=== PATIENT | male | born 1960 | race American Indian/Alaskan Native ===

== ENCOUNTER 2017-11-08 17:30 | Inpatient (IN) | payer BC ==
[2017-11-08 19:10] LABS: BASO # 0.01 K/mm3 (0.0-2.0); BASO % 0.2 % (0.0-3.0); EOS % 0.6 % (1.5-5.0); GRAN # 4.07 (1.4-6.5); HEMOGLOBIN 14.1 g/dL (14.0-18.0); LYMPH # 1.7 (1.2-3.4); LYMPH % 27.9 % (22.0-35.0); MEAN CELL VOLUME 95.6 fl (80.0-105.0); MEAN CORPUSCULAR HEMOGLOBIN 32.9 pg (25.0-35.0); MEAN CORPUSCULAR HGB CONC 34.4 g/dl (31.0-37.0); MONO # 0.3 (0.1-0.6); MONO % 5.3 % (1.0-6.0); RBC 4.29 10^6/uL (3.5-6.1); RED CELL DISTRIBUTION WIDTH 12.6 % (11.5-14.5); WHITE BLOOD COUNT 6.2 10^3/ul (4.5-11.0)
[2017-11-08 19:14] LABS: ALB/GLOB RATIO 1.2 (1.1-1.8); ALBUMIN 4.3 g/dL (3.0-4.8); ALT/SGPT 39 U/L (7-56); AST/SGOT 31 U/L (17-59); BLOOD UREA NITROGEN 24 mg/dL (7-21); CALCIUM 9.7 mg/dL (8.4-10.5); GFR NON-AFRICAN AMERICAN > 60
[2017-11-08] MEDS ORDERED: Ceftaroline 600 MG in Sodium Chloride 0.9% 100 ML IVPB STA (19:31)
--- NOTE | 2017-11-08 19:43 | ED PDOC ---
Arrival/HPI - General Historian: Patient <Etelvina Rees - Last Filed: 11/08/17 20:40> <Luis Multani - Last Filed: 11/13/17 08:18> - General Chief Complaint: Lower Extremity Problem/Injury Time Seen by Provider: 11/08/17 18:03 - History of Present Illness Narrative History of Present Illness (Text): 11/08/17 19:40 57-year-old male resents today sent in by manager clinical applications for admission for osteomyelitis of the right great toe. Patient had outpatient MRI and culture and sensitivities performed. Patient was found to have osteomyelitis of the right big toe. He's been on multiple antibiotics by mouth for infection for the past few weeks. Patient denies chest pain or shortness of breath. He denies fevers or chills. Denies nausea vomiting diarrhea or constipation. Patient is complaining of slight pain to the great toe. Per patient he's had discoloration of the right great toe for over a month. He had a recent removal of the nail after ingrown toenail. No other complaints. (Etelvina Rees) Past Medical History - Provider Review Nursing Documentation Reviewed: Yes - Travel History Have you recently traveled outside [place] w/in the past 3 mons?: No - Infectious Disease Hx of Infectious Diseases: None - Cardiac Hx Cardiac Disorders: No Hx Hypertension: Yes Hx Peripheral Vascular Disease: Yes - Pulmonary Hx Respiratory Disorders: No - Neurological Hx Neurological Disorder: No - HEENT Hx HEENT Disorder: Yes (RETINAL BLEED RIGHT EYE) - Renal Hx Renal Disorder: No - Endocrine/Metabolic Hx Endocrine Disorders: Yes Hx Diabetes Mellitus Type 2: Yes - Hematological/Oncological Hx Blood Disorders: No - Integumentary Hx Dermatological Disorder: Yes (DISCOLORIZATION RIGHT LEG) - Musculoskeletal/Rheumatological Hx Musculoskeletal Disorders: No - Gastrointestinal Hx Gastrointestinal Disorders: Yes - Genitourinary/Gynecological Hx Genitourinary Disorders: No - Psychiatric Hx Psychophysiologic Disorder: No Hx Substance Use: No - Anesthesia Hx Anesthesia: Yes Hx Anesthesia Reactions: No Hx Malignant Hyperthermia: No <Etelvina Rees - Last Filed: 11/08/17 20:40> Family/Social History - Physician Review Nursing Documentation Reviewed: Yes Family/Social History: Unknown Family HX Smoking Status: Never Smoked Hx Alcohol Use: No Hx Substance Use: No <Etelvina Rees - Last Filed: 11/08/17 20:40> Allergies/Home Meds <LucianarohiniEtelvina - Last Filed: 11/08/17 20:40> <Luis Multani - Last Filed: 11/13/17 08:18> Allergies/Adverse Reactions: Allergies No Known Allergies Allergy (Verified 06/08/17 12:25) Home Medications: Home Meds Medication Instructions Recorded Confirmed GlipiZIDE [Glipizide] 10 mg PO DAILY 06/08/17 11/08/17 MetFORMIN [glucOPHAGE] 1,000 mg PO BID 06/08/17 11/08/17 Aspirin [Ecotrin] 81 mg PO DAILY 11/08/17 11/08/17 Clopidogrel [Plavix] 75 mg PO DAILY 11/08/17 11/08/17 Review of Systems - Review of Systems Constitutional: absent: Fatigue, Fevers Respiratory: absent: SOB, Cough Cardiovascular: absent: Chest Pain, Palpitations Gastrointestinal: absent: Abdominal Pain, Nausea, Vomiting Musculoskeletal: Arthralgias. absent: Back Pain, Neck Pain Skin: Cellulitis Psychiatric: absent: Anxiety, Depression <Etelvina Rees - Last Filed: 11/08/17 20:40> Physical Exam Vital Signs Reviewed: Yes Temperature: Afebrile Blood Pressure: Hypertensive Pulse: Regular Respiratory Rate: Normal Appearance: Positive for: Well-Appearing, Non-Toxic, Comfortable Pain Distress: None Mental Status: Positive for: Alert and Oriented X 3 - Systems Exam Head: Present: Atraumatic Mouth: Present: Moist Mucous Membranes Neck: Present: Normal Range of Motion Respiratory/Chest: Present: Clear to Auscultation, Good Air Exchange. No: Respiratory Distress, Accessory Muscle Use Cardiovascular: Present: Regular Rate and Rhythm, Normal S1, S2. No: Murmurs Lower Extremity: Present: NORMAL PULSES (pulses present via doppler), Tenderness (right great toe; there is swelling and slight erythema, with blueish discoloration to the great toe. there is no nail along medial aspect of great toe; sensation in tact cap refill <2. ), Swelling, Neurovascularly Intact. No: CALF TENDERNESS Neurological: Present: GCS=15 Skin: Present: Warm, Dry, Normal Color Psychiatric: Present: Alert, Oriented x 3 <Etelvina Rees - Last Filed: 11/08/17 20:40> Vital Signs Temp Pulse Resp BP Pulse Ox 11/08/17 23:15 18 99 11/08/17 21:00 73 18 129/80 98 11/08/17 17:59 98.5 F 80 18 163/89 H 99 Medical Decision Making <Etelvina Rees - Last Filed: 11/08/17 20:40> <Luis Multani - Last Filed: 11/13/17 08:18> ED Course and Treatment: 11/08/17 19:42 57-year-old diabetic male with acute osteomyelitis of the right great toe Patient had outpatient MRI that confirmed osteomyelitis Patient was sent in by Dr. Roman for IV antibiotics. Advised starting Teflaro 600 mg IV. CBC within normal limits CMP BUN 24 creatinine 1.0 Blood cultures pending Case was discussed in depth with Dr. Sawyer acceptdawson admission to [facility] for osteomyelitis all aspects of this case were discussed the attending of record. Impression; osteomyelitis admit to med/surg (Etelvina Rees) - Lab Interpretations Microbiology Results: Microbiology Results 11/08/17 19:00 Blood Blood Culture - Preliminary NO GROWTH AFTER 4 DAYS 11/08/17 18:50 Blood Blood Culture - Preliminary NO GROWTH AFTER 4 DAYS Lab Results: 11/08/17 18:50 11/08/17 18:50 Lab Results 11/08/17 18:50: Procalcitonin 0.05 L 11/08/17 18:50: C-Reactive Protein < 5.00 11/08/17 18:50: WBC 6.2, RBC 4.29, Hgb 14.1, Hct 41.0 L, MCV 95.6, MCH 32.9, MCHC 34.4, RDW 12.6, Plt Count 201, MPV 9.0, Gran % 66.0, Lymph % (Auto) 27.9, [place] % (Auto) 5.3, Eos % (Auto) 0.6 L, Baso % (Auto) 0.2, Gran # 4.07, Lymph # ( Auto) 1.7, [place] # (Auto) 0.3, Eos # (Auto) 0.0, Baso # (Auto) 0.01 11/08/17 18:50: Sodium 139, Potassium 4.1, Chloride 103, Carbon Dioxide 28, Anion Gap 13, BUN 24 H, Creatinine 1.0, Est GFR ( Amer) > 60, Est GFR ( Non-Af Amer) > 60, Random Glucose 108, Calcium 9.7, Total Bilirubin 0.4, AST 31 , ALT 39, Alkaline Phosphatase 124, Total Protein 7.7, Albumin 4.3, Globulin 3.5 , Albumin/Globulin Ratio 1.2 - RAD Interpretation Radiology Orders: 11/08/17 18:04 CHEST PORTABLE [RAD] Stat - Medication Orders Current Medication Orders: Amlodipine Besylate (Norvasc) 5 mg PO DAILY [facility] Last Admin: 11/12/17 09:26 Dose: 5 mg MAR Blood Pressure Document 11/12/17 09:26 [facility] (Rec: 11/12/17 09:27 [id number] Blood Pressure Blood Pressure (100/60-150/90) 126/78 Aspirin (Ecotrin) 81 mg PO DAILY [facility] Last Admin: 11/12/17 09:26 Dose: 81 mg Clopidogrel Bisulfate (Plavix) 75 mg PO DAILY [facility] Last Admin: 11/12/17 09:27 Dose: 75 mg Dextrose (Dextrose 50% Inj) 0 ml IV STAT PRN; Protocol PRN Reason: Hypoglycemia Protocol Enoxaparin Sodium (Lovenox) 40 mg SC DAILY [facility] PRN Reason: Protocol Last Admin: 11/09/17 09:48 Dose: 40 mg Subcutaneous Administrations Document 11/09/17 09:48 EP (Rec: 11/09/17 09:48 EP [id number]) Injection Site MAR Injection Site Umbilicus Charges for Administration # of Subcutaneous Administrations 1 Dextrose (Dextrose 5% In Water 1000 Ml) 1,000 mls @ 0 mls/hr IV .Q0M PRN; Protocol; Per Protocol PRN Reason: Hypoglycemia Protocol Ceftaroline Fosamil 600 mg/ (Sodium Chloride) 100 mls @ 100 mls/hr IVPB Q12 [facility] PRN Reason: Protocol Stop: 11/23/17 10:01 Last Admin: 11/12/17 21:17 Dose: 100 mls/hr eMAR Start Stop Document 11/12/17 21:17 BR (Rec: 11/12/17 21:18 BR [id number] Intravenous Solution Start Date 11/12/17 Start Time 21:17 End Date 11/12/17 End time 22:17 Total Infusion Time 60 Insulin Human Lispro (Humalog Med) 0 units SC ACHS [place] PRN Reason: Protocol Last Admin: 11/13/17 08:12 Dose: Not Given Non-Admin Reason: Blood Sugar Parameter MAR Blood Glucose Document 11/13/17 08:12 [facility] (Rec: 11/13/17 08:12 [id number]) Blood Glucose Finger Stick Blood Glucose (70-120) 120 Insulin Human NPH (Humulin N) 10 units SC ACBD [facility] Last Admin: 11/12/17 17:15 Dose: 10 units MAR Blood Glucose Document 11/12/17 17:15 [facility] (Rec: 11/12/17 17:15 [id number] Blood Glucose Finger Stick Blood Glucose (70-120) 162 Subcutaneous Administrations Document 11/12/17 17:15 [facility] (Rec: 11/12/17 17:15 [id number]) Injection Site MAR Injection Site Left Arm Charges for Administration # of Subcutaneous Administrations 1 Ondansetron HCl (Zofran Inj) 4 mg IVP ONCE PRN PRN Reason: Nausea/Vomiting Ondansetron HCl (Zofran Inj) 4 mg IVP Q4H PRN PRN Reason: Nausea/Vomiting Pantoprazole Sodium (Protonix Ec Tab) 40 mg PO 0600 [facility] Last Admin: 11/13/17 05:00 Dose: 40 mg Tamsulosin HCl (Flomax) 0.4 mg PO DAILY [facility] Last Admin: 11/12/17 09:26 Dose: 0.4 mg Discontinued Medications Amlodipine Besylate (Norvasc) 2.5 mg PO DAILY [facility] Last Admin: 11/09/17 09:48 Dose: 2.5 mg MAR Blood Pressure Document 11/09/17 09:48 EP (Rec: 11/09/17 09:52 EP [id number]) Blood Pressure Blood Pressure (100/60-150/90) 162/97 Dextrose (Dextrose 50% Inj) 0 ml IV STAT PRN; Protocol PRN Reason: Hypoglycemia Protocol Ceftaroline Fosamil 600 mg/ (Sodium Chloride) 100 mls @ 100 mls/hr IVPB STAT [facility] PRN Reason: Protocol Stop: 11/08/17 20:30 Last Admin: 11/08/17 20:52 Dose: 100 mls/hr eMAR Start Stop Document 11/08/17 20:52 SS (Rec: 11/08/17 20:54 SS [id number]) Intravenous Solution Start Date 11/08/17 Start Time 20:54 End Date 11/08/17 End time 21:54 Total Infusion Time 60 Dextrose (Dextrose 5% In Water 1000 Ml) 1,000 mls @ 0 mls/hr IV .Q0M PRN; Protocol; Per Protocol PRN Reason: Hypoglycemia Protocol Lactated Ringer's (Lactated Ringer's) 1,000 mls @ 70 mls/hr IV .[id number] [facility] Last Admin: 11/12/17 00:13 Dose: 70 mls/hr eMAR Start Stop Document 11/12/17 00:13 PCU (Rec: 11/12/17 00:13 [id number] Intravenous Solution Start Date 11/12/17 Start Time 00:13 End Date 11/12/17 End time 14:13 Total Infusion Time 840 Insulin Human NPH (Humulin N) 10 units SC BID [facility] - [place] / CERTIFIED SUBSTANCE ABUSE COUNSELOR / Resident Statement / has reviewed & agrees with the documentation as recorded. <Luis Multani - Last Filed: 11/13/17 08:18> Disposition/Present on Arrival - Present on Arrival Any Indicators Present on Arrival: No History of DVT/PE: No History of Uncontrolled Diabetes: No Urinary Catheter: No History of Decub. Ulcer: No History Surgical Site Infection Following: None - Disposition Have Diagnosis and Disposition been Completed?: Yes Disposition Time: 19:40 Patient Plan: Admission <Etelvina Rees - Last Filed: 11/08/17 20:40> <Luis Multani - Last Filed: 11/13/17 08:18> - Disposition Diagnosis: Osteomyelitis Disposition: HOSPITALIZED Condition: FAIR
[2017-11-08 20:39] LABS: URINE BILIRUBIN NEGATIVE (NEGATIVE); URINE BLOOD NEGATIVE (NEGATIVE); URINE GLUCOSE (UA) 500 mg/dL (NEGATIVE); URINE LEUKOCYTE ESTERASE NEGATIVE Leu/uL (NEGATIVE); URINE PROTEIN NEGATIVE mg/dL (<30 mg/dL); URINE UROBILINOGEN 0.2 E.U./dL (<1 E.U./dL)
[2017-11-08 20:40] LABS: URINE APPEARANCE CLEAR (CLEAR); URINE COLOR LIGHT YELLOW (YELLOW)
--- NOTE | 2017-11-08 21:05 | CP.PCM.HP ---
<Galindo Madrigal - Last Filed: 11/09/17 03:17> History of Present Illness - History of Present Illness History of Present Illness: Galindo Madrigal DO PGY-1, H&P for Dr. Sawyer CC: right big toe pain and swelling This is a 57 year old AA male with PMH of DM2, PAD, HTN who presents to the ED after being sent in by podiatry for management of osteomyelitis of the right big toe noted on MRI. Pt states that he had an ingrown medial right big toenail removal in September 2017, and subsequently developed pain and swelling to the area. Pt completed a 10-day course of antibiotics (unknown name) but the pain and swelling continued. Pt states that he has been hobbling due to the focal right big toe pain. Pt denies fever, chills, chest pain, sob, abdominal pain, n/ v/d, recent illness, no dysuria. A 12 point ROS was reviewed and is unremarkable. PMD: Christos Bocanegra PMD: DM2 (diagnosed 10 years ago), PAD, HTN PSH: Right balloon angioplasty of posterior and anterior tibial arteries [place] [address] Ya Meds: Metformin 1000mg BID, Glipizide 10 mg BID, Plavix 75 mg QD, ASA 81 mg QD Allx: None FHx: Father with diabetes, mother with HTN. Sister diagnosed and of cancer in her early 50s. Social history. Denies tobacco use, etoh use, illicit drug use including IVDA Present on Admission - Present on Admission Any Indicators Present on Admission: No Review of Systems - Review of Systems All systems: reviewed and no additional remarkable complaints except (as per HPI ) Past Patient History - Infectious Disease Hx of Infectious Diseases: None - Past Medical History & Family History Past Medical History?: Yes - Past Social History Smoking Status: Never Smoked - CARDIAC Hx Cardiac Disorders: No Hx Hypertension: Yes Hx Peripheral Vascular Disease: Yes - PULMONARY Hx Respiratory Disorders: No - NEUROLOGICAL Hx Neurological Disorder: No - HEENT Hx HEENT Problems: Yes (RETINAL BLEED RIGHT EYE) - RENAL Hx Chronic Kidney Disease: No - ENDOCRINE/METABOLIC Hx Endocrine Disorders: Yes Hx Diabetes Mellitus Type 2: Yes - HEMATOLOGICAL/ONCOLOGICAL Hx Blood Disorders: No - INTEGUMENTARY Hx Dermatological Problems: Yes (DISCOLORIZATION RIGHT LEG) - MUSCULOSKELETAL/RHEUMATOLOGICAL Hx Musculoskeletal Disorders: No - GASTROINTESTINAL Hx Gastrointestinal Disorders: Yes - GENITOURINARY/GYNECOLOGICAL Hx Genitourinary Disorders: No - PSYCHIATRIC Hx Psychophysiologic Disorder: No Hx Substance Use: No - SURGICAL HISTORY Hx Surgeries: Yes - ANESTHESIA Hx Anesthesia: Yes Hx Anesthesia Reactions: No Hx Malignant Hyperthermia: No Meds Allergies/Adverse Reactions: Allergies Allergy/AdvReac Type Severity Reaction Status Date / Time No Known Allergies Allergy Verified 06/08/17 12:25 Physical Exam - Constitutional Appears: Non-toxic, No Acute Distress - Eye Exam Eye Exam: EOMI, PERRL - ENT Exam ENT Exam: Mucous Membranes Moist, Normal Exam - Neck Exam Neck exam: Positive for: Normal Inspection. Negative for: Lymphadenopathy - Respiratory Exam Respiratory Exam: NORMAL BREATHING PATTERN. absent: Rales, Rhonchi, Wheezes, Respiratory Distress - Cardiovascular Exam Cardiovascular Exam: REGULAR RHYTHM, +S1, +S2 Additional comments: 3+ bilateral radial pulses - GI/Abdominal Exam GI & Abdominal Exam: Normal Bowel Sounds, Soft. absent: Tenderness - Extremities Exam Extremities exam: Positive for: pedal pulses present (thready DPs bilateral lower extremities). Negative for: calf tenderness, pedal edema, tenderness Additional comments: (+) erythema and swelling to the right big toe with ulceration of the medial aspect of the toe and mild tenderness to palpation; medial aspect of toenail is s/p removal; (+) right big toe is warm to touch; no skin mottling, pt is able to move all toes - Back Exam Back exam: NORMAL INSPECTION - Neurological Exam Neurological exam: Alert, Oriented x3 - Psychiatric Exam Psychiatric exam: Normal Affect, Normal Mood - Skin Skin Exam: Dry, Normal Color, Warm Results - Vital Signs Recent Vital Signs: Last Vital Signs Temp 98.5 F 11/08/17 17:59 Pulse 80 11/08/17 17:59 Resp 18 11/08/17 17:59 BP 163/89 H 11/08/17 17:59 Pulse Ox 99 11/08/17 17:59 - Labs Result Diagrams: 11/08/17 18:50 11/08/17 18:50 Labs: Laboratory Results - last 24 hr 11/08/17 11/08/17 11/08/17 18:50 18:50 20:16 WBC 6.2 RBC 4.29 Hgb 14.1 Hct 41.0 L MCV 95.6 MCH 32.9 MCHC 34.4 RDW 12.6 Plt Count 201 MPV 9.0 Gran % 66.0 Lymph % (Auto) 27.9 Pierce % (Auto) 5.3 Eos % (Auto) 0.6 L Baso % (Auto) 0.2 Gran # 4.07 Lymph # (Auto) 1.7 Pierce # (Auto) 0.3 Eos # (Auto) 0.0 Baso # (Auto) 0.01 Sodium 139 Potassium 4.1 Chloride 103 Carbon Dioxide 28 Anion Gap 13 BUN 24 H Creatinine 1.0 Est GFR ( Amer) > 60 Est GFR (Non-Af Amer) > 60 Random Glucose 108 Calcium 9.7 Total Bilirubin 0.4 AST 31 ALT 39 Alkaline Phosphatase 124 Total Protein 7.7 Albumin 4.3 Globulin 3.5 Albumin/Globulin Ratio 1.2 Urine Color Light yellow Urine Appearance Clear Urine pH 6.0 Ur Specific [place] 1.020 Urine Protein Negative Urine Glucose (UA) 500 H Urine Ketones Negative Urine Blood Negative Urine Nitrate Negative Urine Bilirubin Negative Urine Urobilinogen 0.2 Ur Leukocyte Esterase Negative Assessment & Plan - Assessment and Plan (Free Text) Assessment: This is a 57 year old AA male with PMH of DM2, PAD, HTN who presents to the ED after being sent in by podiatry for management of osteomyelitis of the right big toe noted on MRI. Plan: Osteomyelitis; noted on outpatient MRI - f/u ESR, CRP, procalcitonin - no leukocytosis at this time - will obtain wound cultures, blood culture x2, urine culture - pt received 1 dose of ceftaroline in the ED, will resume Ceftaroline 600 mg IVPB BID in the am - ID consulted, recs appreciated - f/u PT/PTT/INR in anticipation of future debridement - Podiatry consulted, recs appreciated Diabetes - accucheck ACHS - NPH 10 units BID - ISS medium ACHS - LR IVF at 60 mL/hr HTN - EKG is NSR, QTc is 390ms - CXR shows no cardiomegaly or active disease; as read by me - Amlodipine 2.5 mg QD PAD - recent right anterior and posterior tibial balloon angioplasty - continue home Plavix - IR consulted, recs appreciated PPX/Diet - Protonix for GI, Lovenox for VTE - CCD Case was reviewed and discussed with attending physician, Dr. Sawyer <[email or web address] - Last Filed: 11/11/17 13:52> Results - Vital Signs Recent Vital Signs: Last Vital Signs Temp 98.1 F 11/11/17 07:58 Pulse 84 11/11/17 07:58 Resp 20 11/11/17 07:58 BP 134/80 11/11/17 09:58 Pulse Ox 98 11/11/17 07:58 - Labs Result Diagrams: 11/11/17 07:30 11/11/17 07:30 Labs: Laboratory Results - last 24 hr 11/10/17 11/10/17 11/10/17 16:26 18:00 19:00 WBC RBC Hgb Hct MCV MCH MCHC RDW Plt Count MPV Gran % Lymph % (Auto) Pierce % (Auto) Eos % (Auto) Baso % (Auto) Gran # Lymph # (Auto) Pierce # (Auto) Eos # (Auto) Baso # (Auto) Sodium Potassium Chloride Carbon Dioxide Anion Gap BUN Creatinine Est GFR ( Amer) Est GFR (Non-Af Amer) POC Glucose (mg/dL) 118 H Random Glucose Calcium Phosphorus Magnesium Total Bilirubin Direct Bilirubin AST ALT Alkaline Phosphatase Total Protein Albumin Globulin Albumin/Globulin Ratio Prostate Specific Ag 0.9 Urine Color Yellow Urine Appearance Clear Urine pH 6.5 Ur Specific [place] <= 1.005 Urine Protein Negative Urine Glucose (UA) 100 H Urine Ketones Negative Urine Blood Negative Urine Nitrate Negative Urine Bilirubin Negative Urine Urobilinogen 0.2 Ur Leukocyte Esterase Negative 11/10/17 11/11/17 11/11/17 21:47 06:54 07:30 WBC 5.2 RBC 3.96 Hgb 12.7 L Hct 37.6 L MCV 94.9 MCH 32.1 MCHC 33.8 RDW 12.4 Plt Count 186 MPV 8.9 Gran % 73.0 H Lymph % (Auto) 18.9 L Pierce % (Auto) 7.3 H Eos % (Auto) 0.6 L Baso % (Auto) 0.2 Gran # 3.83 Lymph # (Auto) 1.0 L Pierce # (Auto) 0.4 Eos # (Auto) 0.0 Baso # (Auto) 0.01 Sodium Potassium Chloride Carbon Dioxide Anion Gap BUN Creatinine Est GFR ( Amer) Est GFR (Non-Af Amer) POC Glucose (mg/dL) 115 H 114 H Random Glucose Calcium Phosphorus Magnesium Total Bilirubin Direct Bilirubin AST ALT Alkaline Phosphatase Total Protein Albumin Globulin Albumin/Globulin Ratio Prostate Specific Ag Urine Color Urine Appearance Urine pH Ur Specific [place] Urine Protein Urine Glucose (UA) Urine Ketones Urine Blood Urine Nitrate Urine Bilirubin Urine Urobilinogen Ur Leukocyte Esterase 11/11/17 11/11/17 11/11/17 07:30 07:30 11:23 WBC RBC Hgb Hct MCV MCH MCHC RDW Plt Count MPV Gran % Lymph % (Auto) Pierce % (Auto) Eos % (Auto) Baso % (Auto) Gran # Lymph # (Auto) Pierce # (Auto) Eos # (Auto) Baso # (Auto) Sodium 137 Potassium 4.3 Chloride 103 Carbon Dioxide 26 Anion Gap 12 BUN 14 Creatinine 1.1 Est GFR ( Amer) > 60 Est GFR (Non-Af Amer) > 60 POC Glucose (mg/dL) 204 H Random Glucose 110 Calcium 9.0 Phosphorus 3.7 Magnesium 2.0 Total Bilirubin 0.7 Direct Bilirubin 0.1 AST 24 ALT 24 Alkaline Phosphatase 76 Total Protein 6.6 Albumin 3.5 Globulin 3.1 Albumin/Globulin Ratio 1.1 Prostate Specific Ag 0.8 Urine Color Urine Appearance Urine pH Ur Specific [place] Urine Protein Urine Glucose (UA) Urine Ketones Urine Blood Urine Nitrate Urine Bilirubin Urine Urobilinogen Ur Leukocyte Esterase Attending/Attestation - Attestation I have personally seen and examined this patient.: Yes I have fully participated in the care of the patient.: Yes I have reviewed all pertinent clinical information: Yes Notes (Text): Please see/read my dictated notes.
[2017-11-08] MEDS ORDERED: Dextrose 50% SYRINGE Inj (50 ml) IV PRN ×2 (21:45→22:25)
[2017-11-08] MEDS: Insulin Lispro (humaLOG) MEDIUM Coverage SC SCH (22:25)
--- NOTE | 2017-11-08 23:29 | HP ---
HISTORY OF PRESENT ILLNESS: The patient is a 57-year-old male who was sent from Dr. Roman, Podiatry for nonhealing right great toe osteomyelitis and cellulitis. According to the ER notes, the patient had an outside MRI done which showed osteomyelitis. The patient was treated on oral antibiotics but without much response. REVIEW OF SYSTEMS: Thirteen-system review is positive for nonhealing and poor healing of the right foot toe. CODE STATUS: The patient's code status is full code. LIVING WILL ADVANCE DIRECTIVE: None. ALLERGIES: NONE. HEIGHT: 5 feet 9 inches. WEIGHT: 170. BMI: 25. PAST MEDICAL AND SURGICAL HISTORY: History of type 2 diabetes mellitus, history of peripheral vascular disease, history of peripheral angioplasty, history of hypertension, history of colonic polyp, history of polypectomy, history of right eye retinal bleed. The patient's past medical history is significant for history of leukopenia. The patient's past medical history is significant right distal posterior tibial artery occlusion and right proximal anterior tibial artery greater than 75% stenosis and occlusion of the left mid and distal posterior and mid anterior tibial artery. Past medical history is significant for incomplete right bundle-branch block. Past medical history is significant for right foot rest pain and ischemic ulceration. Past medical history is also significant for history of right foot ischemic ulceration and history of right lower extremity balloon angioplasty by Dr. Ya in 05/2017. The patient's past medical history is also significant for peripheral angiogram and angioplasty. SOCIAL HISTORY: Denies smoking. Denies alcohol. Denies substance abuse. Denies communicable transmissible disease. CURRENT MEDICATIONS: Metformin 1000 mg twice a day, glipizide 10 mg twice a day, Plavix 75 mg daily, Ecotrin 81 mg daily. FAMILY HISTORY: Positive for diabetes, hypertension and sister diagnosed of cancer and at age 50. LOCATION: [id number] in [facility] emergency room. PHYSICAL EXAMINATION: VITAL SIGNS: T-max 98.5, pulse 80, blood pressure 163/89, respiration 18, O2 sat 99%. HEENT: The patient's head examination; normocephalic, atraumatic. HEENT examination shows pink conjunctivae. Anicteric sclerae. No oropharyngeal lesion. No neck rigidity. Full range of motion. CHEST: Symmetrical. LUNGS: Examination shows no rales, crackles or wheezing. CARDIOVASCULAR: S1, S2, regular rhythm. ABDOMEN: Soft. Positive bowel sound. No hepatosplenomegaly noted. GENITALIA: Male. RECTAL: Examination is deferred. EXTREMITIES: Shows positive decreased pulses of the lower extremity. Positive right toe swelling and erythema and bluish discoloration of the right great toe. Missing nail of the right great toe noted. No Luh's signs, no calf tenderness noted. Gait examination is not tested. Positive erythema and swelling of the right great toe with ulceration of the medial aspect of the toe noted. Both feet are warm to touch. MUSCULOSKELETAL: Examination shows a body mass index of 25.1. Gait examination is not tested. DIAGNOSTICS: CBC is within normal limit. ESR is 15. CMP, LFTs is positive for BUN of 24. Creatinine is normal. Urine analysis positive for glucose is 500. The patient's outside MRI report is not available. Chest x-ray was done. The patient was seen in the emergency room by ER staff. The patient was given Teflaro as ordered by the Infectious Disease and the patient is to be admitted as per the recommendation of Podiatry for her nonhealing right foot great toe osteomyelitis and outpatient failure to oral antibiotics. IMPRESSION AND PLAN: 1. Right foot great toe osteomyelitis and diabetic foot ulceration, nonhealing and outpatient antibiotic failure. 2. Hypertension. 3. Type 2 diabetes mellitus. 4. Prerenal kidney injury. 5. History of peripheral vascular disease. 6. History of right foot ischemia and ulceration. PLAN: At this time, the patient has been ordered repeat labs for the morning. PT/PTT ordered. Wound cultures have been ordered. Blood and urine cultures ordered. Infectious Disease, Podiatry consultation ordered. Procalcitonin level ordered. The patient is started on IV fluid. The patient is started on sliding scale coverage. The patient is started on basal and bolus insulin. The patient is started on hypoglycemia protocol. The patient is started on gastrointestinal and deep venous thrombosis prophylaxes. The patient is started on Norvasc 2.5 mg daily, Teflaro 600 mg IV every 12. EKG ordered, results pending. Chest x-ray ordered, results pending. The patient is ordered consistent carbohydrate diet. We are unable to locate the outside MRI reports. The patient's last arterial Doppler is from 05/2017. The patient's last EKG was reviewed which shows right bundle-branch block in 05/2017. At present, the patient was advised to be admitted with further intervention by Podiatry, Infectious Disease and if needed, the patient will be ordered Interventional Radiology consultation. We will request Interventional Radiology consultation. The patient was seen and evaluated in the emergency room stretcher #[id number]. Dictated and electronically signed, not read. Miguelito Sawyer MD
[2017-11-08] MEDS: Lactated Ringer's 1,000 ML IV SCH (23:37)
[2017-11-09 00:26] LABS: INR 1.02; PARTIAL THROMBOPLASTIN TIME 32.4 Seconds (25.1-36.5); PROTHROMBIN TIME 11.6 SECONDS (9.4-12.5)
[2017-11-09 01:46] VITALS: BMI 25.1
[2017-11-09] MEDS: Pantoprazole 40 mg EC Tab PO SCH (06:39)
[2017-11-09 08:00] LABS: BASO % 0.2 % (0.0-3.0); EOS % 0.8 % (1.5-5.0); GRAN % 59.3 % (50.0-68.0); HEMOGLOBIN 14.1 g/dL (14.0-18.0); LYMPH % 31.8 % (22.0-35.0); MEAN CELL VOLUME 95.4 fl (80.0-105.0); MEAN CORPUSCULAR HEMOGLOBIN 32.4 pg (25.0-35.0); MEAN PLATELET VOLUME 9.1 fl (7.0-11.0); MONO % 7.9 % (1.0-6.0); RBC 4.35 10^6/uL (3.5-6.1); RED CELL DISTRIBUTION WIDTH 12.6 % (11.5-14.5); WHITE BLOOD COUNT 4.8 10^3/ul (4.5-11.0)
[2017-11-09 08:01] LABS: BASO # 0.01 K/mm3 (0.0-2.0); GRAN # 2.87 (1.4-6.5); LYMPH # 1.5 (1.2-3.4); MONO # 0.4 (0.1-0.6)
[2017-11-09 08:17] LABS: ALB/GLOB RATIO 1.1 (1.1-1.8); ALT/SGPT 32 U/L (7-56); AST/SGOT 31 U/L (17-59); BILIRUBIN,DIRECT 0.3 mg/dL (0.0-0.4); BLOOD UREA NITROGEN 18 mg/dL (7-21); CALCIUM 9.3 mg/dL (8.4-10.5); GFR NON-AFRICAN AMERICAN > 60; HDL CHOLESTEROL 47 mg/dL (29-60)
[2017-11-09 08:24] LABS: LDL CHOLESTEROL 91 mg/dL (0-129)
[2017-11-09 08:30] LABS: FREE T4 0.91 ng/dL (0.78-2.19)
--- NOTE | 2017-11-09 08:50 | RAD ---
Date of service: 11/08/2017 HISTORY: foot infection COMPARISON: No prior. FINDINGS: LUNGS: The lungs are well inflated and clear. PLEURA: No significant pleural effusion identified, no pneumothorax apparent. CARDIOVASCULAR: Normal. OSSEOUS STRUCTURES: No significant abnormalities. VISUALIZED UPPER ABDOMEN: Normal. OTHER FINDINGS: None. IMPRESSION: No active pulmonary disease.
[2017-11-09] MEDS: Insulin Human NPH 1 UNITS/0.01 ML SC SCH ×2 (08:58→17:17)
[2017-11-09] MEDS: Insulin Lispro (humaLOG) MEDIUM Coverage SC SCH ×4 (08:58→21:25)
--- NOTE | 2017-11-09 09:32 | US ---
PROCEDURE: Lower extremity SEAN exam HISTORY: Peripheral vascular disease with pain. Diabetes. PHYSICIAN(S): Jose Enrique Chambers MD. FINDINGS: The right resting SEAN is mildly abnormal, 0.78. The left resting SEAN is normal, 1.17 The brachial systolic pressures are symmetric. The right lower extremity PVR waveforms are normal to the ankle. There is a borderline gradient below the right knee. The right metatarsal PVR waveforms are severely blunted. The findings are suggestive of right tibial and pedal occlusive disease. The left ankle PVR waveforms are decreased in amplitude. No gradient is appreciated on the left. There could be left tibial occlusive disease. IMPRESSION: 1. Bilateral tibial and/or pedal occlusive disease.
[2017-11-09] MEDS: Ceftaroline 600 MG in Sodium Chloride 0.9% 100 ML IVPB SCH ×2 (09:48→21:23)
[2017-11-09] MEDS ORDERED: Enoxaparin 40 mg Syringe SC SCH (10:00)
[2017-11-09] MEDS ORDERED: Insulin Human NPH 1 UNITS/0.01 ML SC SCH (10:00)
--- NOTE | 2017-11-09 10:08 | RAD ---
Date of service: 11/09/2017 PROCEDURE: Right Foot Radiographs. HISTORY: Patient with right hallux ulcer To R/I or O OM. COMPARISON: None. FINDINGS: BONES: Bone alignment and mineralization are normal. There is no acute displaced fracture or bone destruction. JOINTS: There is mild degenerative osteoarthrosis in the 1st MTP joint. The remaining joint spaces are preserved. SOFT TISSUES: There is diffuse soft tissue swelling in the great toe. OTHER FINDINGS: There are atherosclerotic vascular calcifications. IMPRESSION: Great toe cellulitis. No radiographic evidence for osteomyelitis.
--- NOTE | 2017-11-09 12:25 | CON ---
DATE: 11/09/2017 TIME: 12:00 noon. CHIEF COMPLAINT AND HISTORY OF PRESENT ILLNESS This is a 57-year-old diabetic who is admitted with an ischemic ulceration of the right great toe. Mr. Hayes underwent an arteriogram at [facility] in 05/2017. Anterior tibial and posterior tibial interventions were performed that time. He subsequently had a nail removed from the right great toe, which has resulted in an ischemic ulceration. Outside MRI is consistent with osteomyelitis of the right great toe. He has been treated with antibiotics on an outpatient basis. His primary physician is Dr. Mane. He has been a poorly controlled diabetic in the past. He has been treated for hypertension. He has no documented coronary artery disease. His femoral and popliteal pulses are strong and easily palpable bilaterally. His pedal pulses are absent bilaterally. I reviewed his angio from May at [facility] He has [id number] disease bilaterally. He was treated with angioplasty. There does appear to be a right dorsalis pedis artery for distal bypass if necessary. Mr. Hayes's creatinine is normal. I discussed at length the situation with the patient and his . We will repeat the arteriogram and see if endovascular intervention is feasible on the right. The patient may require a right popliteal-distal bypass. Worst case scenario, this may result in below-knee amputation. I will speak with Dr. Sawyer and Dr. Roman. Jose Enrique Chambers MD [facility]
--- NOTE | 2017-11-09 13:27 | CP.PCM.CON ---
History of Present Illness - History of Present Illness History of Present Illness: Podiatry consult notes for attending Dr. Roman 57 year old male patient with PMH of DM2, PAD, HTN seen and evaluated at the bedside for infected right toe ulcer. Patient states that he is following up with doctor Roman for his right toe ulcer at the wound care center since few months. Patient states that he did MRI which came out as there is suspected osteomyelitis so he was sent by Dr. Roman to be admitted to the hospital. Patient denies any pain in his feet at this time. Patient states that there is only minimal drainage come from the ulcer site. Patient states that he has proplem of his blood circulation at his right lower extremity and he did ballon angio with Dr Gary few months ago. He states that Dr. Chambers is going to take him again for angio tomorrow to his right LE vessels. Patient denies any recent F/N/V/C or SOB. Patient denies any other pedal complaint at this time. PMD: DM2 , PAD, HTN PSH: Right balloon angioplasty of posterior and anterior tibial arteries in March [address] Gary Allergies: NKDA Social history: Denies tobacco use, ETOH use, or illicit drug use Review of Systems - Review of Systems Review of Systems: As per HPI Past Patient History - Infectious Disease Hx of Infectious Diseases: None - Past Medical History & Family History Past Medical History?: Yes - Past Social History Smoking Status: Never Smoked - CARDIAC Hx Cardiac Disorders: No Hx Hypertension: Yes Hx Peripheral Vascular Disease: Yes - PULMONARY Hx Respiratory Disorders: No - NEUROLOGICAL Hx Neurological Disorder: No - HEENT Hx HEENT Problems: Yes (RETINAL BLEED RIGHT EYE) - RENAL Hx Chronic Kidney Disease: No - ENDOCRINE/METABOLIC Hx Endocrine Disorders: Yes Hx Diabetes Mellitus Type 2: Yes - HEMATOLOGICAL/ONCOLOGICAL Hx Blood Disorders: No - INTEGUMENTARY Hx Dermatological Problems: Yes (DISCOLORIZATION RIGHT LEG) - MUSCULOSKELETAL/RHEUMATOLOGICAL Hx Musculoskeletal Disorders: No - GASTROINTESTINAL Hx Gastrointestinal Disorders: Yes - GENITOURINARY/GYNECOLOGICAL Hx Genitourinary Disorders: No - PSYCHIATRIC Hx Psychophysiologic Disorder: No Hx Substance Use: No - SURGICAL HISTORY Hx Surgeries: Yes - ANESTHESIA Hx Anesthesia: Yes Hx Anesthesia Reactions: No Hx Malignant Hyperthermia: No Meds Allergies/Adverse Reactions: Allergies Allergy/AdvReac Type Severity Reaction Status Date / Time No Known Allergies Allergy Verified 06/08/17 12:25 - Medications Medications: Current Medications Amlodipine Besylate (Norvasc) 5 mg PO DAILY [facility] Aspirin (Ecotrin) 81 mg PO DAILY [facility] Clopidogrel Bisulfate (Plavix) 75 mg PO DAILY [facility] Dextrose (Dextrose 50% Inj) 0 ml IV STAT PRN; Protocol PRN Reason: Hypoglycemia Protocol Enoxaparin Sodium (Lovenox) 40 mg SC DAILY [facility] PRN Reason: Protocol Last Admin: 11/09/17 09:48 Dose: 40 mg Dextrose (Dextrose 5% In Water 1000 Ml) 1,000 mls @ 0 mls/hr IV .Q0M PRN; Protocol; Per Protocol PRN Reason: Hypoglycemia Protocol Lactated Ringer's (Lactated Ringer's) 1,000 mls @ 70 mls/hr IV .[id number] [facility] Last Admin: 11/08/17 23:37 Dose: 70 mls/hr Ceftaroline Fosamil 600 mg/ (Sodium Chloride) 100 mls @ 100 mls/hr IVPB Q12 [facility] PRN Reason: Protocol Stop: 11/23/17 10:01 Last Admin: 11/09/17 09:48 Dose: 100 mls/hr Insulin Human Lispro (Humalog Med) 0 units SC ACHS [facility] PRN Reason: Protocol Last Admin: 11/09/17 08:58 Dose: Not Given Insulin Human NPH (Humulin N) 10 units SC ACBD [facility] Last Admin: 11/09/17 08:58 Dose: Not Given Pantoprazole Sodium (Protonix Ec Tab) 40 mg PO 0600 [facility] Last Admin: 11/09/17 06:39 Dose: 40 mg Physical Exam - Constitutional Appears: Well, Non-toxic, No Acute Distress - Head Exam Head Exam: ATRAUMATIC, NORMOCEPHALIC - Extremities Exam Additional comments: Bilateral LE focused Exam: Vasc: DP/PT pulses are non palpable bilaterally, Cap refill time delayed > 3 sec in all digits, skin temperature gradient: warm to cool from proximal to distal. Neuro: Protective sensation diminished. Gross sensation intact b/l. DERM: Ulceration on the plantar distal aspect of the right hallux. the ulcer is 1cmX 0.7cmX0.1cm. No drainage but positive malodor. No probing to bone, No undermining or tracking. MSK: No pain on palpation of the right hallu. Muscle power intact 5/5 in all groups. - Neurological Exam Neurological exam: Alert, Oriented x3 - Psychiatric Exam Psychiatric exam: Normal Affect, Normal Mood Results - Vital Signs Recent Vital Signs: Last Vital Signs Temp 98.5 F 11/09/17 06:00 Pulse 79 11/09/17 06:00 Resp 18 11/09/17 06:00 BP 162/97 H 11/09/17 09:48 Pulse Ox 97 11/09/17 06:00 - Labs Result Diagrams: 11/09/17 07:30 11/09/17 07:30 Labs: Laboratory Results - last 24 hr 11/08/17 11/08/17 11/08/17 20:16 20:16 21:38 WBC RBC Hgb Hct MCV MCH MCHC RDW Plt Count MPV Gran % Lymph % (Auto) [place] % (Auto) Eos % (Auto) Baso % (Auto) Gran # Lymph # (Auto) [place] # (Auto) Eos # (Auto) Baso # (Auto) ESR 15 PT 11.6 INR 1.02 APTT 32.4 Sodium Potassium Chloride Carbon Dioxide Anion Gap BUN Creatinine Est GFR ( Amer) Est GFR (Non-Af Amer) POC Glucose (mg/dL) Random Glucose Calcium Total Bilirubin Direct Bilirubin AST ALT Alkaline Phosphatase Total Protein Albumin Globulin Albumin/Globulin Ratio Triglycerides Cholesterol LDL Cholesterol Direct HDL Cholesterol 25-OH Vitamin D Total Free T4 Thyroxine (T4) TSH 3rd Generation Urine Color Light yellow Urine Appearance Clear Urine pH 6.0 Ur Specific [place] 1.020 Urine Protein Negative Urine Glucose (UA) 500 H Urine Ketones Negative Urine Blood Negative Urine Nitrate Negative Urine Bilirubin Negative Urine Urobilinogen 0.2 Ur Leukocyte Esterase Negative 11/08/17 11/09/17 11/09/17 22:35 05:00 07:30 WBC 4.8 D RBC 4.35 Hgb 14.1 Hct 41.5 L MCV 95.4 MCH 32.4 MCHC 34.0 RDW 12.6 Plt Count 192 MPV 9.1 Gran % 59.3 Lymph % (Auto) 31.8 [place] % (Auto) 7.9 H Eos % (Auto) 0.8 L Baso % (Auto) 0.2 Gran # 2.87 Lymph # (Auto) 1.5 [place] # (Auto) 0.4 Eos # (Auto) 0.0 Baso # (Auto) 0.01 ESR PT INR APTT Sodium Potassium Chloride Carbon Dioxide Anion Gap BUN Creatinine Est GFR ( Amer) Est GFR (Non-Af Amer) POC Glucose (mg/dL) 194 H Random Glucose Calcium Total Bilirubin Direct Bilirubin AST ALT Alkaline Phosphatase Total Protein Albumin Globulin Albumin/Globulin Ratio Triglycerides Cholesterol LDL Cholesterol Direct HDL Cholesterol 25-OH Vitamin D Total 50.9 Free T4 Thyroxine (T4) TSH 3rd Generation Urine Color Urine Appearance Urine pH Ur Specific [place] Urine Protein Urine Glucose (UA) Urine Ketones Urine Blood Urine Nitrate Urine Bilirubin Urine Urobilinogen Ur Leukocyte Esterase 11/09/17 11/09/17 11/09/17 07:30 07:30 08:53 WBC RBC Hgb Hct MCV MCH MCHC RDW Plt Count MPV Gran % Lymph % (Auto) [place] % (Auto) Eos % (Auto) Baso % (Auto) Gran # Lymph # (Auto) [place] # (Auto) Eos # (Auto) Baso # (Auto) ESR PT INR APTT Sodium 137 Potassium 4.2 Chloride 104 Carbon Dioxide 25 Anion Gap 12 BUN 18 Creatinine 0.9 Est GFR ( Amer) > 60 Est GFR (Non-Af Amer) > 60 POC Glucose (mg/dL) 122 H Random Glucose 111 H Calcium 9.3 Total Bilirubin 0.7 Direct Bilirubin 0.3 AST 31 ALT 32 Alkaline Phosphatase 88 Total Protein 7.5 Albumin 4.0 Globulin 3.5 Albumin/Globulin Ratio 1.1 Triglycerides 65 Cholesterol 178 LDL Cholesterol Direct 91 HDL Cholesterol 47 25-OH Vitamin D Total Free T4 0.91 Thyroxine (T4) 7.0 TSH 3rd Generation 0.43 L Urine Color Urine Appearance Urine pH Ur Specific [place] Urine Protein Urine Glucose (UA) Urine Ketones Urine Blood Urine Nitrate Urine Bilirubin Urine Urobilinogen Ur Leukocyte Esterase 11/09/17 11:05 WBC RBC Hgb Hct MCV MCH MCHC RDW Plt Count MPV Gran % Lymph % (Auto) [place] % (Auto) Eos % (Auto) Baso % (Auto) Gran # Lymph # (Auto) [place] # (Auto) Eos # (Auto) Baso # (Auto) ESR PT INR APTT Sodium Potassium Chloride Carbon Dioxide Anion Gap BUN Creatinine Est GFR ( Amer) Est GFR (Non-Af Amer) POC Glucose (mg/dL) 213 H Random Glucose Calcium Total Bilirubin Direct Bilirubin AST ALT Alkaline Phosphatase Total Protein Albumin Globulin Albumin/Globulin Ratio Triglycerides Cholesterol LDL Cholesterol Direct HDL Cholesterol 25-OH Vitamin D Total Free T4 Thyroxine (T4) TSH 3rd Generation Urine Color Urine Appearance Urine pH Ur Specific [place] Urine Protein Urine Glucose (UA) Urine Ketones Urine Blood Urine Nitrate Urine Bilirubin Urine Urobilinogen Ur Leukocyte Esterase Assessment & Plan - Assessment and Plan (Free Text) Assessment: 57 Y/O M patient seen and evaluated at the bed side for infected Right hallux ulcer with possible osteomyelitis. Plan: Patient seen and evaluated at the bed side with Dr. Roman Plan discussed in details with attending Dr. Roman Chart, Labs and vitals reviewed; Afebrile, WBCs 4.8 ESR: 15 LE arterial duplex: SEAN R 0.78 L 1.17. B/l tibial and or pedal occlusive disease. Right foot x-ray; Periosteal reaction of the distal phalanx of the right hallux. Vascular surgery is on board. Patient planned to be taken tomorrow to the OR for Right LE angioplasty. Ulcer dressed using Optifoam ID is on board. Discussed with the patient that any surgical intervention plan will be determined after the angioplasty result. Patient expressed verbal understanding. Podiatry will follow up the patient while in house. - Date & Time Date: 11/09/17 Time: 13:08
--- NOTE | 2017-11-09 15:01 | MRI ---
Date of service: 11/09/2017 PROCEDURE: MRI of the right foot without contrast HISTORY: r/o osteomyelitis 1st toe COMPARISON: Plain film same day TECHNIQUE: MRI of the right foot was performed in multiple planes using multiple pulse sequences FINDINGS: There is marrow edema in the 1st distal phalanx consistent with osteomyelitis. There is no obvious bony destruction. The metatarsals are unremarkable. No significant subcutaneous edema IMPRESSION: There is marrow edema in the 1st distal phalanx consistent with osteomyelitis. There is no obvious bony destruction
--- NOTE | 2017-11-09 17:12 | CP.PCM.CON ---
History of Present Illness - History of Present Illness History of Present Illness: 57 year old male with PMH of DM, peripheral arterial disease, HTN, S/P right lower extremity balloon angioplasty [place] [facility] [place] of continue pain and swelling of his right hallux, after he had an ingrown toenail removed in 2017. He was given antibiotics (unrecalled) for 10 days but swelling continued. He denies fever or chills, no nausea or vomiting, denies soaking his feet in water, no abdominal pain, no headache or dizziness, no diarrhea, no dysuria, denies animal contacts. He had an MRI done outside and it showed possible marrow edema. Infectious Diseases consult is requested to further evaluate and manage. Review of Systems - Review of Systems All systems: reviewed and no additional remarkable complaints except (as per HPI ) Past Patient History - Infectious Disease Hx of Infectious Diseases: None - Past Medical History & Family History Past Medical History?: Yes - Past Social History Smoking Status: Never Smoked - CARDIAC Hx Cardiac Disorders: No Hx Hypertension: Yes Hx Peripheral Vascular Disease: Yes - PULMONARY Hx Respiratory Disorders: No - NEUROLOGICAL Hx Neurological Disorder: No - HEENT Hx HEENT Problems: Yes (RETINAL BLEED RIGHT EYE) - RENAL Hx Chronic Kidney Disease: No - ENDOCRINE/METABOLIC Hx Endocrine Disorders: Yes Hx Diabetes Mellitus Type 2: Yes - HEMATOLOGICAL/ONCOLOGICAL Hx Blood Disorders: No - INTEGUMENTARY Hx Dermatological Problems: Yes (DISCOLORIZATION RIGHT LEG) - MUSCULOSKELETAL/RHEUMATOLOGICAL Hx Musculoskeletal Disorders: No - GASTROINTESTINAL Hx Gastrointestinal Disorders: Yes - GENITOURINARY/GYNECOLOGICAL Hx Genitourinary Disorders: No - PSYCHIATRIC Hx Psychophysiologic Disorder: No Hx Substance Use: No - SURGICAL HISTORY Hx Surgeries: Yes - ANESTHESIA Hx Anesthesia: Yes Hx Anesthesia Reactions: No Hx Malignant Hyperthermia: No Meds Allergies/Adverse Reactions: Allergies Allergy/AdvReac Type Severity Reaction Status Date / Time No Known Allergies Allergy Verified 06/08/17 12:25 - Medications Medications: Current Medications Amlodipine Besylate (Norvasc) 2.5 mg PO DAILY [facility] Dextrose (Dextrose 50% Inj) 0 ml IV STAT PRN; Protocol PRN Reason: Hypoglycemia Protocol Enoxaparin Sodium (Lovenox) 40 mg SC DAILY [facility] PRN Reason: Protocol Dextrose (Dextrose 5% In Water 1000 Ml) 1,000 mls @ 0 mls/hr IV .Q0M PRN; Protocol; Per Protocol PRN Reason: Hypoglycemia Protocol Lactated Ringer's (Lactated Ringer's) 1,000 mls @ 70 mls/hr IV .[id number] [facility] Last Admin: 11/08/17 23:37 Dose: 70 mls/hr Ceftaroline Fosamil 600 mg/ (Sodium Chloride) 100 mls @ 100 mls/hr IVPB Q12 [facility] PRN Reason: Protocol Stop: 11/09/17 10:59 Insulin Human Lispro (Humalog Med) 0 units SC ACHS [facility] PRN Reason: Protocol Last Admin: 11/08/17 22:25 Dose: Not Given Insulin Human NPH (Humulin N) 10 units SC ACBD [facility] Pantoprazole Sodium (Protonix Ec Tab) 40 mg PO 0600 [facility] Last Admin: 11/09/17 06:39 Dose: 40 mg Physical Exam - Constitutional Appears: No Acute Distress, Chronically Ill - Head Exam Head Exam: NORMAL INSPECTION - ENT Exam ENT Exam: Mucous Membranes Moist - Neck Exam Neck exam: Negative for: Meningismus - Respiratory Exam Respiratory Exam: Decreased Breath Sounds - Cardiovascular Exam Cardiovascular Exam: +S1, +S2 - GI/Abdominal Exam GI & Abdominal Exam: Soft. absent: Tenderness - Extremities Exam Additional comments: right hallux with swelling and erythema Results - Vital Signs Recent Vital Signs: Last Vital Signs Temp 97.9 F 11/09/17 01:14 Pulse 85 11/09/17 01:14 Resp 20 11/09/17 01:14 BP 159/99 H 11/09/17 01:14 Pulse Ox 99 11/08/17 23:15 - Labs Result Diagrams: 11/09/17 07:30 11/09/17 07:30 Labs: Laboratory Results - last 24 hr 11/08/17 11/08/17 11/08/17 20:16 20:16 21:38 ESR 15 PT 11.6 INR 1.02 APTT 32.4 POC Glucose (mg/dL) Urine Color Light yellow Urine Appearance Clear Urine pH 6.0 Ur Specific [place] 1.020 Urine Protein Negative Urine Glucose (UA) 500 H Urine Ketones Negative Urine Blood Negative Urine Nitrate Negative Urine Bilirubin Negative Urine Urobilinogen 0.2 Ur Leukocyte Esterase Negative 11/08/17 22:35 ESR PT INR APTT POC Glucose (mg/dL) 194 H Urine Color Urine Appearance Urine pH Ur Specific [place] Urine Protein Urine Glucose (UA) Urine Ketones Urine Blood Urine Nitrate Urine Bilirubin Urine Urobilinogen Ur Leukocyte Esterase Assessment & Plan - Assessment and Plan (Free Text) Plan: Assessment Right hallux probable osteomyelitis with skin and skin structure infection, associated with peripheral arterial disease DM peripheral arterial disease HTN S/P right lower extremity balloon angioplasty Plan Started Teflaro; discussed with Dr. Roman - will have Dr. Jsoe Enrique Chambers do procedure to take care of PAD before any other procedure to be done and will monitor clinically
[2017-11-09] MEDS: Lactated Ringer's 1,000 ML IV SCH ×2 (17:19→21:25)
--- NOTE | 2017-11-09 18:35 | CP.PCM.PN ---
<Dionicio Boudreaux - Last Filed: 11/09/17 23:09> Subjective - Date & Time of Evaluation Date of Evaluation: 11/09/17 Time of Evaluation: 09:35 - Subjective Subjective: Dionicio Boudreaux PGY2 IM Progress Note for Dr. Sawyer Patient was seen and examined at bedside. His is bedside. He states that he is feeling slightly better. His presents an MRI report from 10/30/17 with impression: "1.findings compatible with cellulitis of first distal phalanx with reactive marrow edema in first distal phalanx. no evidence of osteomyelitis or abscess. 2. Tenosynovitis of flexor hallucis longus tendon." He denies fevers/chills, n/v/d. Objective - Vital Signs/Intake and Output Vital Signs (last 24 hours): Temp Pulse Resp BP Pulse Ox 97.6 F 84 20 149/99 H 99 11/09/17 14:00 11/09/17 14:00 11/09/17 14:00 11/09/17 14:00 11/09/17 14:00 Intake and Output: 11/09/17 11/09/17 06:59 18:59 Intake Total 180 560 Balance 180 560 - Medications Medications: Current Medications Amlodipine Besylate (Norvasc) 5 mg PO DAILY [facility] Last Admin: 11/09/17 13:21 Dose: 5 mg Aspirin (Ecotrin) 81 mg PO DAILY [facility] Last Admin: 11/09/17 13:21 Dose: 81 mg Clopidogrel Bisulfate (Plavix) 75 mg PO DAILY [facility] Last Admin: 11/09/17 13:21 Dose: 75 mg Dextrose (Dextrose 50% Inj) 0 ml IV STAT PRN; Protocol PRN Reason: Hypoglycemia Protocol Enoxaparin Sodium (Lovenox) 40 mg SC DAILY [facility] PRN Reason: Protocol Last Admin: 11/09/17 09:48 Dose: 40 mg Dextrose (Dextrose 5% In Water 1000 Ml) 1,000 mls @ 0 mls/hr IV .Q0M PRN; Protocol; Per Protocol PRN Reason: Hypoglycemia Protocol Lactated Ringer's (Lactated Ringer's) 1,000 mls @ 70 mls/hr IV .[id number] [facility] Last Admin: 11/09/17 17:19 Dose: 70 mls/hr Ceftaroline Fosamil 600 mg/ (Sodium Chloride) 100 mls @ 100 mls/hr IVPB Q12 [facility] PRN Reason: Protocol Stop: 11/23/17 10:01 Last Admin: 11/09/17 09:48 Dose: 100 mls/hr Insulin Human Lispro (Humalog Med) 0 units SC ACHS [facility] PRN Reason: Protocol Last Admin: 11/09/17 17:17 Dose: 3 units Insulin Human NPH (Humulin N) 10 units SC ACBD [facility] Last Admin: 11/09/17 17:17 Dose: Not Given Pantoprazole Sodium (Protonix Ec Tab) 40 mg PO 0600 [facility] Last Admin: 11/09/17 06:39 Dose: 40 mg - Labs Labs: 11/09/17 07:30 11/09/17 07:30 PT 11.6 SECONDS (9.4-12.5) 11/08/17 21:38 INR 1.02 11/08/17 21:38 APTT 32.4 Seconds (25.1-36.5) 11/08/17 21:38 - Constitutional Appears: Well, Non-toxic, No Acute Distress - Head Exam Head Exam: NORMAL INSPECTION - Eye Exam Eye Exam: Normal appearance - ENT Exam ENT Exam: Mucous Membranes Moist - Neck Exam Neck Exam: Normal Inspection - Respiratory Exam Respiratory Exam: Clear to Ausculation Bilateral, NORMAL BREATHING PATTERN - Cardiovascular Exam Cardiovascular Exam: RRR, +S1, +S2 - GI/Abdominal Exam GI & Abdominal Exam: Soft. absent: Distended, Tenderness - Extremities Exam Extremities Exam: Full ROM Additional comments: right first toe erythema and warm - Back Exam Back Exam: NORMAL INSPECTION - Neurological Exam Neurological Exam: Alert, Awake, Normal Gait, Oriented x3 - Psychiatric Exam Psychiatric exam: Normal Mood - Skin Skin Exam: Normal Color Assessment and Plan - Assessment and Plan (Free Text) Assessment: 57 yo AAM with a PMH of PVD and DM2 presenting for R first distal phalanx cellulitis r/o osteomyelitis Plan: Cellulitis of first phalanx right foot 2/2 DM2 and PVD - cont ceftaroline - ID consulted, recs appreciated - repeat MRI ordered - podiatry consulted, recs appreciated - IR/Dr. Ya consulted, recs appreciated Hx DM2 - CCD - ISS - Accuchecks ACHS - A1C ordered PPX - Lovenox for DVT ppx - PTX for GI ppx Case was reviewed and discussed with attending, Dr. Silverio Boudreaux PGY2 <Miguelito Sawyer U - Last Filed: 11/11/17 13:52> Objective - Vital Signs/Intake and Output Vital Signs (last 24 hours): Temp Pulse Resp BP Pulse Ox 98.1 F 84 20 134/80 98 11/11/17 07:58 11/11/17 07:58 11/11/17 07:58 11/11/17 09:58 11/11/17 07:58 Intake and Output: 11/11/17 11/11/17 06:59 18:59 Intake Total 700 Output Total 1900 400 Balance -1200 -400 - Medications Medications: Current Medications Amlodipine Besylate (Norvasc) 5 mg PO DAILY [facility] Last Admin: 11/11/17 09:58 Dose: 5 mg Aspirin (Ecotrin) 81 mg PO DAILY [facility] Last Admin: 11/11/17 09:59 Dose: 81 mg Clopidogrel Bisulfate (Plavix) 75 mg PO DAILY [facility] Last Admin: 11/11/17 09:59 Dose: 75 mg Dextrose (Dextrose 50% Inj) 0 ml IV STAT PRN; Protocol PRN Reason: Hypoglycemia Protocol Enoxaparin Sodium (Lovenox) 40 mg SC DAILY [facility] PRN Reason: Protocol Last Admin: 11/09/17 09:48 Dose: 40 mg Dextrose (Dextrose 5% In Water 1000 Ml) 1,000 mls @ 0 mls/hr IV .Q0M PRN; Protocol; Per Protocol PRN Reason: Hypoglycemia Protocol Lactated Ringer's (Lactated Ringer's) 1,000 mls @ 70 mls/hr IV .[id number] [facility] Last Admin: 11/11/17 06:41 Dose: 70 mls/hr Ceftaroline Fosamil 600 mg/ (Sodium Chloride) 100 mls @ 100 mls/hr IVPB Q12 [facility] PRN Reason: Protocol Stop: 11/23/17 10:01 Last Admin: 11/11/17 10:00 Dose: 100 mls/hr Insulin Human Lispro (Humalog Med) 0 units SC ACHS [facility] PRN Reason: Protocol Last Admin: 11/11/17 08:00 Dose: Not Given Insulin Human NPH (Humulin N) 10 units SC ACBD [facility] Last Admin: 11/11/17 09:54 Dose: Not Given Ondansetron HCl (Zofran Inj) 4 mg IVP ONCE PRN PRN Reason: Nausea/Vomiting Pantoprazole Sodium (Protonix Ec Tab) 40 mg PO 0600 [facility] Last Admin: 11/11/17 06:41 Dose: 40 mg Tamsulosin HCl (Flomax) 0.4 mg PO DAILY [facility] Last Admin: 11/11/17 09:59 Dose: 0.4 mg - Labs Labs: 11/11/17 07:30 11/11/17 07:30 PT 11.6 SECONDS (9.4-12.5) 11/08/17 21:38 INR 1.02 11/08/17 21:38 APTT 32.4 Seconds (25.1-36.5) 11/08/17 21:38 Attending/Attestation - Attestation I have personally seen and examined this patient.: Yes I have fully participated in the care of the patient.: Yes I have reviewed all pertinent clinical information, including history, physical exam and plan: Yes Notes (Text): Please see/read my dictated notes.
--- NOTE | 2017-11-09 21:37 | CARD ---
APPROVED REPORT Date of service: 11/08/2017 EKG Measurement Heart [id number] <Conclusion> Normal sinus rhythm Normal ECG
--- NOTE | 2017-11-09 23:43 | PN ---
DATE: 11/09/2017 SUBJECTIVE: The patient was seen and examined in room 574, bed 2. The patient's is at bedside. Patient is seen lying in the bed. Overnight nurse's notes were reviewed. The patient slept well without any distress noted. PHYSICAL EXAMINATION: VITAL SIGNS: T-max 98.5; heart rate 79, 85, 84; blood pressure 143/88, 162/97, 144/100, 149/99; respirations 18; O2 sat 97%-99%. HEENT: Head: Normocephalic, atraumatic. HEENT examination shows pink conjunctivae. Anicteric sclerae. No oropharyngeal lesion. No neck rigidity. CHEST: Symmetrical. LUNGS: Examination shows no rales, crackles or wheezing. CARDIOVASCULAR: Shows S1, S2, regular rhythm. ABDOMEN: Soft. Positive bowel sound. GENITALIA: Male. RECTAL: Examination is deferred. EXTREMITIES: Shows positive swelling of the right great toe and tenderness to touch and some erythema noted and missing medial part of the nail noted. MUSCULOSKELETAL: Examination shows a body mass index of 25. No pitting edema noted. Both feet and legs are warm to touch. Gait examination is not tested. PSYCHIATRIC: Examination is not applicable. DIAGNOSTICS: 11/09, CBC is within normal limit. PT/PTT is normal. Chemistry, CMP, LFTs are within normal limit. Hemoglobin A1c 7.1. Fingerstick blood sugar 213, 132, 111. Hemoglobin A1c 7.7. Vitamin D 51. Procalcitonin level is negative at 0.05. TSH is slightly low at 0.43. C-reactive protein is less than 5. Urine glucose 500. Blood cultures, no growth. The patient had an MRI of the foot and foot x-rays and arterial Doppler. The results of which are reviewed and explained to the patient at length. EKG was reviewed, which is normal sinus rhythm. The patient seen by Dr. Jose Enrique Chambers as per the request of Podiatry. The patient seen by Infectious Disease. The patient seen by Podiatry. IMPRESSION: 1. Right foot big toe diabetic foot ulceration and cellulitis and osteomyelitis. 2. Right foot big toe skin and skin structure infection. 3. Severe peripheral vascular disease. 4. Hypertension. 5. Mid-rojlenj-vqnyxpcah diabetes mellitus. 6. History of peripheral vascular disease status post angioplasty of the right lower extremity. 7. Right hallex diabetic foot ulceration and osteomyelitis. 8. Type 2 diabetes mellitus with hemoglobin A1c of 7.7. 9. Glycosuria. 10. Right big toe and first distal pharynx marrow edema consistent with osteomyelitis. 11. Right foot first metatarsophalangeal joint degenerative osteoarthrosis. 12. Bilateral tibial and pedal occlusive disease with right lower extremity ankle brachial index is 0.78. 13. Right tibial and pedal occlusive disease with severely blunted right metatarsal peripheral vascular resistance. 14. Left tibial occlusive disease with left ankle, right ankle, a PVR waveform decreased in amplitude. 1. Right foot great toe osteomyelitis and diabetic foot ulceration, nonhealing and outpatient antibiotic failure. 2. Hypertension. 3. Type 2 diabetes mellitus. 4. Prerenal kidney injury. 5. History of peripheral vascular disease. 6. History of right foot ischemia and ulceration. PLAN: The patient seen by Dr. Jose Enrique Chambers, Podiatry and Infectious Disease. All treatment options and all scenarios have been discussed and explained to the patient and the patient's by the physician involved in the care of the patient, which she acknowledged to understand. The patient was advised and agreeable to proceed with the arteriogram as per recommendations by Dr. Jose Enrique Chambers to see if endovascular intervention is feasible on the right lower extremity. The patient was also explained and the was also explained about the possibility of the right popliteal distal bypass and the worse case scenario was also explained to the patient, which is the below-knee amputation. At present, the patient has been ordered wound cultures which is still uncollected. CURRENT CONSULTATIONS: Infectious Disease, Podiatry, Interventional Radiology and Vascular Surgery. CURRENT MEDICATIONS: Aspirin 81 daily, Humalog medium dose sliding scale coverage, NPH 10 units with breakfast and dinner, Ringer's lactate, Lovenox 40 subcu daily which will be held for tomorrow's arteriogram, Norvasc increased to 5 mg daily, Plavix 75 mg daily, Protonix 40 mg daily, Teflaro 600 mg IV every 6 hours. Fingerstick blood sugar, out of bed to chair has been ordered. The patient has been updated about his condition at length with the patient's present at the bedside. The patient has been ordered evaluation by Physical Therapy for possible gait training and possible nonweightbearing of the right lower extremity. At present, the patient will be continued on the above therapeutic intervention as discussed. The patient will be monitored closely. The patient will be followed by Infectious Disease, Interventional Radiology, Podiatry and Vascular Surgery. The patient and the patient's have been extensively explained about the patient's clinical condition, diagnoses, treatment plan, and treatment options all discussed and explained to the patient at length by the physician involved in the care of the patient. Dictated and electronically signed, not read. Miguelito Sawyer MD MTDD
[2017-11-10] MEDS: Lactated Ringer's 1,000 ML IV SCH ×2 (05:48→17:37)
[2017-11-10] MEDS: Pantoprazole 40 mg EC Tab PO SCH (05:49)
[2017-11-10] MEDS: Insulin Human NPH 1 UNITS/0.01 ML SC SCH ×2 (07:30→16:29)
[2017-11-10] MEDS: Insulin Lispro (humaLOG) MEDIUM Coverage SC SCH ×4 (08:06→21:48)
[2017-11-10] MEDS ORDERED: Lidocaine PF 2% (5 ml) Inj (For Cardiac Arrhy) ONE (10:57)
[2017-11-10] MEDS ORDERED: Phenylephrine 10 mg/ml Inj ONE (10:58)
[2017-11-10] MEDS ORDERED: Iodixanol 320 MG/ML 200 ML BOTTLE IV ONE ×2 (10:58→11:17)
[2017-11-10] MEDS ORDERED: Iodixanol 320 MG/ML 100 ML BOTTLE IV ONE (10:58)
[2017-11-10] MEDS ORDERED: Midazolam 2 MG/2 ML VIAL ONE ×3 (11:09→11:35)
--- NOTE | 2017-11-10 11:12 | CP.PCM.PN ---
<Dionicio Boudreaux - Last Filed: 11/10/17 17:27> Subjective - Date & Time of Evaluation Date of Evaluation: 11/10/17 Time of Evaluation: 10:12 - Subjective Subjective: Dionicio Boudreaux PGY2 IM Progress Note for Dr. Sawyer Patient was seen and examined at bedside. He states that he is to is pretty much unchanged from prior days. He denies other acute or overnight events. He denies any chest pain, abdominal pain, fever/chills, numbness or tingling in any extremity or dizziness/headaches. Patient is scheduled for angiogram today with IR. Objective - Vital Signs/Intake and Output Vital Signs (last 24 hours): Temp Pulse Resp BP Pulse Ox 97.5 F L 82 18 146/79 97 11/10/17 06:00 11/10/17 06:00 11/10/17 06:00 11/10/17 10:16 11/10/17 06:00 Intake and Output: 11/10/17 11/10/17 06:59 18:59 Intake Total 1380 Balance 1380 - Medications Medications: Current Medications Amlodipine Besylate (Norvasc) 5 mg PO DAILY [facility] Last Admin: 11/10/17 10:16 Dose: 5 mg Aspirin (Ecotrin) 81 mg PO DAILY [facility] Last Admin: 11/10/17 10:19 Dose: 81 mg Clopidogrel Bisulfate (Plavix) 75 mg PO DAILY [facility] Last Admin: 11/10/17 10:19 Dose: 75 mg Dextrose (Dextrose 50% Inj) 0 ml IV STAT PRN; Protocol PRN Reason: Hypoglycemia Protocol Enoxaparin Sodium (Lovenox) 40 mg SC DAILY [facility] PRN Reason: Protocol Last Admin: 11/09/17 09:48 Dose: 40 mg Dextrose (Dextrose 5% In Water 1000 Ml) 1,000 mls @ 0 mls/hr IV .Q0M PRN; Protocol; Per Protocol PRN Reason: Hypoglycemia Protocol Lactated Ringer's (Lactated Ringer's) 1,000 mls @ 70 mls/hr IV .[id number] [facility] Last Admin: 11/10/17 05:48 Dose: Not Given Ceftaroline Fosamil 600 mg/ (Sodium Chloride) 100 mls @ 100 mls/hr IVPB Q12 [facility] PRN Reason: Protocol Stop: 11/23/17 10:01 Last Admin: 11/09/17 21:23 Dose: 100 mls/hr Insulin Human Lispro (Humalog Med) 0 units SC [facility] PRN Reason: Protocol Last Admin: 11/10/17 08:06 Dose: Not Given Insulin Human NPH (Humulin N) 10 units SC ACBD [facility] Last Admin: 11/09/17 17:17 Dose: Not Given Pantoprazole Sodium (Protonix Ec Tab) 40 mg PO 0600 [facility] Last Admin: 11/10/17 05:49 Dose: Not Given - Labs Labs: 11/09/17 07:30 11/09/17 07:30 PT 11.6 SECONDS (9.4-12.5) 11/08/17 21:38 INR 1.02 11/08/17 21:38 APTT 32.4 Seconds (25.1-36.5) 11/08/17 21:38 - Additional Findings Additional findings: - Constitutional Appears: Well, Non-toxic, No Acute Distress - Head Exam Head Exam: NORMAL INSPECTION - Eye Exam Eye Exam: Normal appearance - ENT Exam ENT Exam: Mucous Membranes Moist - Neck Exam Neck Exam: Normal Inspection - Respiratory Exam Respiratory Exam: Clear to Ausculation Bilateral, NORMAL BREATHING PATTERN - Cardiovascular Exam Cardiovascular Exam: RRR, +S1, +S2 - GI/Abdominal Exam GI & Abdominal Exam: Soft. absent: Distended, Tenderness - Extremities Exam Extremities Exam: Full ROM Additional comments: right first toe erythema and warmth - Back Exam Back Exam: NORMAL INSPECTION - Neurological Exam Neurological Exam: Alert, Awake, Normal Gait, Oriented x3 - Psychiatric Exam Psychiatric exam: Normal Mood - Skin Skin Exam: Normal Color Assessment and Plan - Assessment and Plan (Free Text) Assessment: 57 yo AAM with a PMH of PVD and DM2 presenting for R first distal phalanx cellulitis, suspicious for osteomyelitis as seen on MRI. Plan: Cellulitis of first phalanx right foot 2/2 DM2 and PVD - cont ceftaroline - cont ASA/Plavix - DVT ppx Lovenox held due to angio planned for today - blood, urine and wound cxs pending - ID consulted, recs appreciated - Podiatry consulted, recs appreciated - IR/Dr. Ya consulted, further recs appreciated Hx DM2 - CCD - ISS - Accuchecks ACHS PPX - Lovenox for DVT ppx; held per IR recs - PTX for GI ppx Case was reviewed and discussed with attending, Dr. Silverio Boudreaux PGY2 <Miguelito Sawyer U - Last Filed: 11/11/17 13:54> Objective - Vital Signs/Intake and Output Vital Signs (last 24 hours): Temp Pulse Resp BP Pulse Ox 98.1 F 84 20 134/80 98 11/11/17 07:58 11/11/17 07:58 11/11/17 07:58 11/11/17 09:58 11/11/17 07:58 Intake and Output: 11/11/17 11/11/17 06:59 18:59 Intake Total 700 Output Total 1900 400 Balance -1200 -400 - Medications Medications: Current Medications Amlodipine Besylate (Norvasc) 5 mg PO DAILY [facility] Last Admin: 11/11/17 09:58 Dose: 5 mg Aspirin (Ecotrin) 81 mg PO DAILY [facility] Last Admin: 11/11/17 09:59 Dose: 81 mg Clopidogrel Bisulfate (Plavix) 75 mg PO DAILY [facility] Last Admin: 11/11/17 09:59 Dose: 75 mg Dextrose (Dextrose 50% Inj) 0 ml IV STAT PRN; Protocol PRN Reason: Hypoglycemia Protocol Enoxaparin Sodium (Lovenox) 40 mg SC DAILY [facility] PRN Reason: Protocol Last Admin: 11/09/17 09:48 Dose: 40 mg Dextrose (Dextrose 5% In Water 1000 Ml) 1,000 mls @ 0 mls/hr IV .Q0M PRN; Protocol; Per Protocol PRN Reason: Hypoglycemia Protocol Lactated Ringer's (Lactated Ringer's) 1,000 mls @ 70 mls/hr IV .[id number] [facility] Last Admin: 11/11/17 06:41 Dose: 70 mls/hr Ceftaroline Fosamil 600 mg/ (Sodium Chloride) 100 mls @ 100 mls/hr IVPB Q12 [facility] PRN Reason: Protocol Stop: 11/23/17 10:01 Last Admin: 11/11/17 10:00 Dose: 100 mls/hr Insulin Human Lispro (Humalog Med) 0 units SC ACHS [facility] PRN Reason: Protocol Last Admin: 11/11/17 08:00 Dose: Not Given Insulin Human NPH (Humulin N) 10 units SC ACBD [facility] Last Admin: 11/11/17 09:54 Dose: Not Given Ondansetron HCl (Zofran Inj) 4 mg IVP ONCE PRN PRN Reason: Nausea/Vomiting Pantoprazole Sodium (Protonix Ec Tab) 40 mg PO 0600 [facility] Last Admin: 11/11/17 06:41 Dose: 40 mg Tamsulosin HCl (Flomax) 0.4 mg PO DAILY [facility] Last Admin: 11/11/17 09:59 Dose: 0.4 mg - Labs Labs: 11/11/17 07:30 11/11/17 07:30 PT 11.6 SECONDS (9.4-12.5) 11/08/17 21:38 INR 1.02 11/08/17 21:38 APTT 32.4 Seconds (25.1-36.5) 11/08/17 21:38 Attending/Attestation - Attestation I have personally seen and examined this patient.: Yes I have fully participated in the care of the patient.: Yes I have reviewed all pertinent clinical information, including history, physical exam and plan: Yes Notes (Text): Please see/read my dictated notes.
[2017-11-10] MEDS ORDERED: Nitroglycerin 50mg in D5W 50 MG/250 ML BOTTLE IV ONE (11:18)
--- NOTE | 2017-11-10 13:39 | PN ---
DATE: 11/10/2017 SUBJECTIVE: The patient is still in room 574, bed 2. Overnight nurse's notes were reviewed. According to the nurses' notes, the patient declined insulin use despite explanation of the indication for insulin use because of inpatient hospitalization and better management of diabetes. The patient is scheduled today for arteriogram. PHYSICAL EXAMINATION: VITAL SIGNS: T-max 98, heart rate 82, 87, 84, blood pressures 149/99, 133/83, 146/79, respiration 18, O2 sat 97-99%. GENERAL: The patient was seen by Podiatry, Infectious Disease and Interventional Radiology. Their recommendations noted. DIAGNOSTIC DATA: All the diagnostic data reviewed. IMPRESSION AND PLAN: 1. Right foot big toe diabetic foot ulceration, cellulitis and osteomyelitis and right foot big toe skin and skin structure infection. 2. Severe peripheral vascular disease. 3. Hypertension. 4. Noninsulin-requiring diabetes mellitus with hemoglobin A1c of 7.7 and elevated fructosamine level. 5. History of peripheral vascular disease, status post angioplasty of the right lower extremity. 6. Glycosuria. 7. Right foot first metatarsophalangeal joint degenerative osteoarthritis. 8. Bilateral tibial and pedal occlusive disease with right lower extremity ankle brachial index of 0.78. 1. Right foot big toe diabetic foot ulceration and cellulitis and osteomyelitis. 2. Right foot big toe skin and skin structure infection. 3. Severe peripheral vascular disease. 4. Hypertension. 5. Wqm-oprnyxn-utaztqdpj diabetes mellitus. 6. History of peripheral vascular disease status post angioplasty of the right lower extremity. 7. Right hallex diabetic foot ulceration and osteomyelitis. 8. Type 2 diabetes mellitus with hemoglobin A1c of 7.7. 9. Glycosuria. 10. Right big toe and first distal pharynx marrow edema consistent with osteomyelitis. 11. Right foot first metatarsophalangeal joint degenerative osteoarthrosis. 12. Bilateral tibial and pedal occlusive disease with right lower extremity ankle brachial index is 0.78. 13. Right tibial and pedal occlusive disease with severely blunted right metatarsal peripheral vascular resistance. 14. Left tibial occlusive disease with left ankle, right ankle, a PVR waveform decreased in amplitude. 1. Right foot great toe osteomyelitis and diabetic foot ulceration, nonhealing and outpatient antibiotic failure. 2. Hypertension. 3. Type 2 diabetes mellitus. 4. Prerenal kidney injury. 5. History of peripheral vascular disease. 6. History of right foot ischemia and ulceration. PLAN: At this time, the patient is supposed to go for vascular intervention today. The patient is to be continued on IV antibiotics as per Infectious Disease recommendation. The patient has been ordered repeat labs for the morning. Current consultation, Infectious Disease, Podiatry, Interventional Radiology, Vascular Surgery. CURRENT MEDICATIONS: Aspirin 81 daily, Humalog medium dose sliding scale coverage with basal insulin NPH 10 units with breakfast and dinner, Ringer's lactate at 70 mL an hour, Lovenox 40 subcu daily to be held today for arteriogram, Norvasc 5 mg daily, Plavix 75 mg daily Protonix 40 mg daily, Teflaro 600 IV every 12 hours. The patient has been ordered incentive spirometry. Physical therapy ordered for gait training. Dictated and electronically signed, not read. Miguelito Sawyer MD MTDD
--- NOTE | 2017-11-10 14:32 | CP.PCM.PN ---
Subjective - Date & Time of Evaluation Date of Evaluation: 11/10/17 Time of Evaluation: 14:25 - Subjective Subjective: Podiatry consult notes for attending Dr. Roman 57 year old male patient seen and evaluated at the bedside for infected right toe ulcer. Patient states that he didn't have any pain in his right big toe since yesterday. Patient states that there is some drainage from his toe. Patient denies any overnight F/N/V/C or SOB. Patient denies any other pedal complaint at this time. Objective - Vital Signs/Intake and Output Vital Signs (last 24 hours): Temp Pulse Resp BP Pulse Ox 97.5 F L 85 14 133/85 99 11/10/17 14:10 11/10/17 14:10 11/10/17 14:10 11/10/17 14:10 11/10/17 14:10 Intake and Output: 11/10/17 11/10/17 06:59 18:59 Intake Total 1380 Balance 1380 - Medications Medications: Current Medications Amlodipine Besylate (Norvasc) 5 mg PO DAILY [facility] Last Admin: 11/10/17 10:16 Dose: 5 mg Aspirin (Ecotrin) 81 mg PO DAILY [facility] Last Admin: 11/10/17 10:19 Dose: 81 mg Clopidogrel Bisulfate (Plavix) 75 mg PO DAILY [facility] Last Admin: 11/10/17 10:19 Dose: 75 mg Dextrose (Dextrose 50% Inj) 0 ml IV STAT PRN; Protocol PRN Reason: Hypoglycemia Protocol Enoxaparin Sodium (Lovenox) 40 mg SC DAILY [facility] PRN Reason: Protocol Last Admin: 11/09/17 09:48 Dose: 40 mg Dextrose (Dextrose 5% In Water 1000 Ml) 1,000 mls @ 0 mls/hr IV .Q0M PRN; Protocol; Per Protocol PRN Reason: Hypoglycemia Protocol Lactated Ringer's (Lactated Ringer's) 1,000 mls @ 70 mls/hr IV .[id number] [facility] Last Admin: 11/10/17 05:48 Dose: Not Given Ceftaroline Fosamil 600 mg/ (Sodium Chloride) 100 mls @ 100 mls/hr IVPB Q12 [facility] PRN Reason: Protocol Stop: 11/23/17 10:01 Last Admin: 11/09/17 21:23 Dose: 100 mls/hr Insulin Human Lispro (Humalog Med) 0 units SC ACHS [facility] PRN Reason: Protocol Last Admin: 11/10/17 08:06 Dose: Not Given Insulin Human NPH (Humulin N) 10 units SC ACBD [facility] Last Admin: 11/09/17 17:17 Dose: Not Given Ondansetron HCl (Zofran Inj) 4 mg IVP ONCE PRN PRN Reason: Nausea/Vomiting Pantoprazole Sodium (Protonix Ec Tab) 40 mg PO 0600 [facility] Last Admin: 11/10/17 05:49 Dose: Not Given - Labs Labs: 11/09/17 07:30 11/09/17 07:30 PT 11.6 SECONDS (9.4-12.5) 11/08/17 21:38 INR 1.02 11/08/17 21:38 APTT 32.4 Seconds (25.1-36.5) 11/08/17 21:38 - Constitutional Appears: Well, Non-toxic, No Acute Distress - Head Exam Head Exam: ATRAUMATIC, NORMOCEPHALIC - Extremities Exam Additional comments: Right LE focused Exam: Vasc: DP/PT pulses are non palpable, Cap refill time delayed > 3 sec in all digits, skin temperature gradient: warm to cool from proximal to distal. Neuro: Protective sensation diminished. Gross sensation intact b/l. DERM: Ulceration on the plantar distal aspect of the right hallux. the ulcer is 1cmX 0.7cmX0.1cm. Minimal purulent drainage, positive malodor. No probing to bone, No undermining or tracking. MSK: No pain on palpation of the right hallux. Muscle power intact 5/5 in all groups. - Neurological Exam Neurological Exam: Alert, Awake, Oriented x3 - Psychiatric Exam Psychiatric exam: Normal Affect, Normal Mood Assessment and Plan - Assessment and Plan (Free Text) Assessment: 57 Y/O M patient seen and evaluated at the bed side for infected Right hallux ulcer with osteomyelitis. Plan: Patient seen and evaluated at the bed side with Dr. Roman Plan discussed in details with attending Dr. Roman Chart, Labs and vitals reviewed; Afebrile, WBCs 4.8 ESR: 15 LE arterial duplex: SEAN R 0.78 L 1.17. B/l tibial and or pedal occlusive disease. Right foot x-ray; Periosteal reaction of the distal phalanx of the right hallux. MRI right foot result; Right hallux distal phalanx Osteomyelitis. Vascular surgery is on board. Wound culture: MRSA. Patient Planned to be taken soon by the vascular to the OR for Right LE angioplasty. Ulcer cleaned with sterile saline and dressed using DSD and kerlix ID is on board. Discussed with the patient that any surgical intervention plan will be determined after the angioplasty and restoring his right LE circulation. Patient expressed verbal understanding. Podiatry will follow up the patient while in house.
[2017-11-10] MEDS: Ceftaroline 600 MG in Sodium Chloride 0.9% 100 ML IVPB SCH ×2 (15:44→21:47)
--- NOTE | 2017-11-10 16:45 | VASCULAR ---
PROCEDURE: 1. Abdominal aortogram and bilateral lower extremity runoff with right selective views. 2. Right anterior tibial artery jet stream atherectomy, angioplasty, and proximal drug-eluting stent placement 3. Long segment right posterior tibial artery angioplasty 4. Kissing proximal right peroneal and posterior tibial artery angioplasty HISTORY: Severe peripheral vascular disease. Ischemic ulceration right great toe. Diabetes. PHYSICIAN(S): Jose Enrique Chambers M.D. TECHNIQUE: The relative risks and indications of the procedure were explained to the patient and his and consent obtained. The patient was hydrated prior to the procedure and the appropriate labs drawn. The patient was placed supine on the arteriogram table and the left groin prepped and draped in the usual sterile fashion. Conscious sedation and monitoring were provided throughout the procedure by a nurse. Under ultrasound guidance, the left common femoral artery was punctured. 5 Portuguese sheath was placed at the left groin. Five Portuguese flush catheter was placed the level of the renal arteries and a PA DSA abdominal pelvic arteriogram performed. The catheter was pulled down the aortic bifurcation and bilateral oblique DSA pelvic arteriograms performed. Overlapping bilateral lower extremity DSA arteriograms were obtained from the inguinal ligaments to the ankles. 0.035 support wire was advanced over the bifurcation placed the distal right SF A. A 7 Portuguese 65 centimeter destination sheath was placed in the distal right SFA 6500 units IV and nitroglycerin in 2 in 50 MC G aliquots were given. With some difficulty, the severe diffuse disease in the right anterior tibial artery was crossed and 0 point 014 bare wire placed in the dorsalis pedis artery. Jet stream atherectomy of the right anterior tibial artery was performed with a 1.85 mm catheter. The right anterior tibial artery was then dilated with a 2.5/3 0.0 x 210 angioplasty balloon. 2.5 x 120 jaw quit noncompliant angioplasty balloon was used distally. There was a residual stenosis in the proximal right anterior tibial artery. A 3.5 x 38 mm drug-eluting coronary stent was deployed in the proximal right anterior tibial artery. The guidewire was redirected down the diffusely diseased right posterior tibial artery. The terminal posterior tibial artery is occluded. There is a large collateral supplies the heel. The right posterior tibial artery was dilated with 3.5 x 150 balloon. Using a Tallyfy wire system, a 0.014 guidewire was placed in the mid right peroneal artery. In kissing fashion, the proximal right peroneal artery and proximal right posterior tibial arteries were dilated with 3.0 and 3.5 mm balloons respectively. Completion angiograms were obtained. The sheath was removed hemostasis obtained with a Perclose device. The patient tolerated the procedure well FINDINGS: There are single renal arteries bilaterally which are widely patent and normal in appearance. The nephrograms are symmetric in appearance. The infrarenal abdominal aorta is widely patent without a radiographically significant stenosis. The aortic bifurcation is widely patent. The common and external iliac arteries are normal in appearance without a significant stenosis. The internal iliac arteries are patent bilaterally. The infrarenal runoff is normal from the groins to the trifurcation bilaterally. On the right, there is severe trifurcation and tibial occlusive disease. The right anterior tibial and posterior tibial arteries have severe diffuse multifocal disease. The right peroneal artery has proximal and distal disease. There is significant pedal occlusive disease noted. On the left, the trifurcation is intact. There is long segment severe disease of the anterior tibial and posterior tibial arteries. The left peroneal artery is a predominant supply to the foot. IMPRESSION: 1.Successful right anterior tibial artery jet stream atherectomy, angioplasty, and proximal drug-eluting stent placement. 2. Successful long segment right posterior tibial artery angioplasty. 3. Successful kissing angioplasty of the proximal right peroneal and posterior tibial arteries. 4. Severe right pedal occlusive disease.
--- NOTE | 2017-11-10 17:21 | CP.PCM.CON ---
History of Present Illness - History of Present Illness History of Present Illness: IMP; PREVIOUS INABILITY TO URINATE AND TO BE CATHETERIZED DM LOWER EXT INFECTION FULL NOTRE TBD YS Past Patient History - Infectious Disease Hx of Infectious Diseases: None - Past Medical History & Family History Past Medical History?: Yes - Past Social History Smoking Status: Never Smoked - CARDIAC Hx Cardiac Disorders: No Hx Hypertension: Yes - PULMONARY Hx Respiratory Disorders: No - NEUROLOGICAL Hx Neurological Disorder: No - HEENT Hx HEENT Problems: Yes (RETINAL BLEED RIGHT EYE) - RENAL Hx Chronic Kidney Disease: No - ENDOCRINE/METABOLIC Hx Diabetes Mellitus Type 2: Yes - HEMATOLOGICAL/ONCOLOGICAL Hx Blood Disorders: No - INTEGUMENTARY Hx Dermatological Problems: Yes (DISCOLORIZATION RIGHT LEG) - MUSCULOSKELETAL/RHEUMATOLOGICAL Hx Musculoskeletal Disorders: No - GASTROINTESTINAL Hx Gastrointestinal Disorders: Yes - GENITOURINARY/GYNECOLOGICAL Hx Genitourinary Disorders: No - PSYCHIATRIC Hx Psychophysiologic Disorder: No Hx Substance Use: No - SURGICAL HISTORY Hx Surgeries: Yes - ANESTHESIA Hx Anesthesia: Yes Hx Anesthesia Reactions: No Hx Malignant Hyperthermia: No Meds Allergies/Adverse Reactions: Allergies Allergy/AdvReac Type Severity Reaction Status Date / Time No Known Allergies Allergy Verified 06/08/17 12:25 - Medications Medications: Current Medications Amlodipine Besylate (Norvasc) 5 mg PO DAILY [facility] Last Admin: 11/10/17 10:16 Dose: 5 mg Aspirin (Ecotrin) 81 mg PO DAILY [facility] Last Admin: 11/10/17 10:19 Dose: 81 mg Clopidogrel Bisulfate (Plavix) 75 mg PO DAILY [facility] Last Admin: 11/10/17 10:19 Dose: 75 mg Dextrose (Dextrose 50% Inj) 0 ml IV STAT PRN; Protocol PRN Reason: Hypoglycemia Protocol Enoxaparin Sodium (Lovenox) 40 mg SC DAILY [facility] PRN Reason: Protocol Last Admin: 11/09/17 09:48 Dose: 40 mg Dextrose (Dextrose 5% In Water 1000 Ml) 1,000 mls @ 0 mls/hr IV .Q0M PRN; Protocol; Per Protocol PRN Reason: Hypoglycemia Protocol Lactated Ringer's (Lactated Ringer's) 1,000 mls @ 70 mls/hr IV .[id number] [facility] Last Admin: 11/10/17 05:48 Dose: Not Given Ceftaroline Fosamil 600 mg/ (Sodium Chloride) 100 mls @ 100 mls/hr IVPB Q12 [facility] PRN Reason: Protocol Stop: 11/23/17 10:01 Last Admin: 11/10/17 15:44 Dose: 100 mls/hr Insulin Human Lispro (Humalog Med) 0 units SC ACHS [facility] PRN Reason: Protocol Last Admin: 11/10/17 16:28 Dose: Not Given Insulin Human NPH (Humulin N) 10 units SC ACBD [facility] Last Admin: 11/10/17 16:29 Dose: Not Given Ondansetron HCl (Zofran Inj) 4 mg IVP ONCE PRN PRN Reason: Nausea/Vomiting Pantoprazole Sodium (Protonix Ec Tab) 40 mg PO 0600 [facility] Last Admin: 11/10/17 05:49 Dose: Not Given Tamsulosin HCl (Flomax) 0.4 mg PO DAILY [facility] Results - Vital Signs Recent Vital Signs: Last Vital Signs Temp 97.5 F L 11/10/17 14:10 Pulse 85 11/10/17 14:10 Resp 14 11/10/17 14:10 BP 133/85 11/10/17 14:10 Pulse Ox 99 11/10/17 14:10 - Labs Result Diagrams: 11/09/17 07:30 11/09/17 07:30 Labs: Laboratory Results - last 24 hr 11/09/17 11/09/17 11/09/17 10:00 16:07 21:19 POC Glucose (mg/dL) 228 H 221 H Fructosamine 358 H 11/10/17 11/10/17 06:34 16:26 POC Glucose (mg/dL) 143 H 118 H Fructosamine Assessment & Plan - Date & Time Date: 11/10/17 Time: 17:21
[2017-11-10 19:14] LABS: PH,URINE 6.5 (4.7-8.0); URINE BILIRUBIN NEGATIVE (NEGATIVE); URINE BLOOD NEGATIVE (NEGATIVE); URINE GLUCOSE (UA) 100 mg/dL (NEGATIVE); URINE LEUKOCYTE ESTERASE NEGATIVE Leu/uL (NEGATIVE); URINE PROTEIN NEGATIVE mg/dL (<30 mg/dL); URINE UROBILINOGEN 0.2 E.U./dL (<1 E.U./dL)
[2017-11-10 19:23] LABS: URINE APPEARANCE CLEAR (CLEAR); URINE COLOR YELLOW (YELLOW)
[2017-11-11] MEDS: Lactated Ringer's 1,000 ML IV SCH (06:41)
[2017-11-11] MEDS: Pantoprazole 40 mg EC Tab PO SCH (06:41)
[2017-11-11 08:00] LABS: BASO # 0.01 K/mm3 (0.0-2.0); BASO % 0.2 % (0.0-3.0); EOS % 0.6 % (1.5-5.0); GRAN # 3.83 (1.4-6.5); HEMOGLOBIN 12.7 g/dL (14.0-18.0); LYMPH % 18.9 % (22.0-35.0); MEAN CELL VOLUME 94.9 fl (80.0-105.0); MEAN CORPUSCULAR HEMOGLOBIN 32.1 pg (25.0-35.0); MEAN CORPUSCULAR HGB CONC 33.8 g/dl (31.0-37.0); MEAN PLATELET VOLUME 8.9 fl (7.0-11.0); MONO # 0.4 (0.1-0.6); MONO % 7.3 % (1.0-6.0); RBC 3.96 10^6/uL (3.5-6.1); RED CELL DISTRIBUTION WIDTH 12.4 % (11.5-14.5); WHITE BLOOD COUNT 5.2 10^3/ul (4.5-11.0)
[2017-11-11] MEDS: Insulin Lispro (humaLOG) MEDIUM Coverage SC SCH ×4 (08:00→21:39)
[2017-11-11 08:48] LABS: ALB/GLOB RATIO 1.1 (1.1-1.8); ALBUMIN 3.5 g/dL (3.0-4.8); ALT/SGPT 24 U/L (7-56); AST/SGOT 24 U/L (17-59); BILIRUBIN,DIRECT 0.1 mg/dL (0.0-0.4); BLOOD UREA NITROGEN 14 mg/dL (7-21); GFR NON-AFRICAN AMERICAN > 60
[2017-11-11] MEDS: Insulin Human NPH 1 UNITS/0.01 ML SC SCH ×2 (09:54→17:22)
[2017-11-11] MEDS: Ceftaroline 600 MG in Sodium Chloride 0.9% 100 ML IVPB SCH ×2 (10:00→21:40)
--- NOTE | 2017-11-11 16:08 | CP.PCM.PN ---
Subjective - Date & Time of Evaluation Date of Evaluation: 11/11/17 Time of Evaluation: 16:04 - Subjective Subjective: Podiatry Progress Note for Dr. Roman 57M seen and evaluated at bedside for R hallux ulceration with underlying OM. Patient is AAO x 3 and NAD, resting comfortably in bed. Denies any acute overnight events, new pedal complaints, or pain to the ulcer site. Denies any recent N/V/F/C/CP/SOB/D/posterior calf pain when squeezed. Patient states that his angioplasty was uneventful and that he feels good. Objective - Vital Signs/Intake and Output Vital Signs (last 24 hours): Temp Pulse Resp BP Pulse Ox 98 F 95 H 18 127/75 100 11/11/17 14:00 11/11/17 14:00 11/11/17 14:00 11/11/17 14:00 11/11/17 14:00 Intake and Output: 11/11/17 11/11/17 06:59 18:59 Intake Total 700 Output Total 1900 400 Balance -1200 -400 - Medications Medications: Current Medications Amlodipine Besylate (Norvasc) 5 mg PO DAILY [facility] Last Admin: 11/11/17 09:58 Dose: 5 mg Aspirin (Ecotrin) 81 mg PO DAILY [facility] Last Admin: 11/11/17 09:59 Dose: 81 mg Clopidogrel Bisulfate (Plavix) 75 mg PO DAILY [facility] Last Admin: 11/11/17 09:59 Dose: 75 mg Dextrose (Dextrose 50% Inj) 0 ml IV STAT PRN; Protocol PRN Reason: Hypoglycemia Protocol Enoxaparin Sodium (Lovenox) 40 mg SC DAILY [facility] PRN Reason: Protocol Last Admin: 11/09/17 09:48 Dose: 40 mg Dextrose (Dextrose 5% In Water 1000 Ml) 1,000 mls @ 0 mls/hr IV .Q0M PRN; Protocol; Per Protocol PRN Reason: Hypoglycemia Protocol Lactated Ringer's (Lactated Ringer's) 1,000 mls @ 70 mls/hr IV .[id number] [facility] Last Admin: 11/11/17 06:41 Dose: 70 mls/hr Ceftaroline Fosamil 600 mg/ (Sodium Chloride) 100 mls @ 100 mls/hr IVPB Q12 [facility] PRN Reason: Protocol Stop: 11/23/17 10:01 Last Admin: 11/11/17 10:00 Dose: 100 mls/hr Insulin Human Lispro (Humalog Med) 0 units SC ACHS [facility] PRN Reason: Protocol Last Admin: 11/11/17 14:06 Dose: 3 units Insulin Human NPH (Humulin N) 10 units SC ACBD [facility] Last Admin: 11/11/17 09:54 Dose: Not Given Ondansetron HCl (Zofran Inj) 4 mg IVP ONCE PRN PRN Reason: Nausea/Vomiting Pantoprazole Sodium (Protonix Ec Tab) 40 mg PO 0600 [facility] Last Admin: 11/11/17 06:41 Dose: 40 mg Tamsulosin HCl (Flomax) 0.4 mg PO DAILY [facility] Last Admin: 11/11/17 09:59 Dose: 0.4 mg - Labs Labs: 11/11/17 07:30 11/11/17 07:30 PT 11.6 SECONDS (9.4-12.5) 11/08/17 21:38 INR 1.02 11/08/17 21:38 APTT 32.4 Seconds (25.1-36.5) 11/08/17 21:38 - Constitutional Appears: Well, Non-toxic, No Acute Distress - Extremities Exam Additional comments: Right LE focused Exam: Vasc: DP/PT pulses palpable 2/4 b/l. Skin temperature warm to warm from proximal to distal. CFT < 3 seconds to all digits except right hallux. Minimal edema noted around ulceration site of hallux. Neuro: Protective sensation diminished. Gross sensation intact b/l. DERM: Ulceration on the plantar distal aspect of the right hallux. the ulcer is 1cmX 0.7cmX0.1cm. No drainage, no malodor. No probing to bone, No undermining or tracking. No erythema, no other clinical signs of infection MSK: No pain on palpation of the right hallux. Muscle power intact 5/5 in all groups. - Neurological Exam Neurological Exam: Alert, Awake, Oriented x3 - Psychiatric Exam Psychiatric exam: Normal Affect, Normal Mood Assessment and Plan - Assessment and Plan (Free Text) Assessment: 57M seen and evaluated at bedside for R hallux ulceration with underlying OM Plan: Patient seen and evaluated Plan discussed with Dr. Roman Afebrile, absent leukocytosis Continue abx per ID Toe wound cx: pending 11/09 R foot xray: No radiographic evidence of OM 11/09 R foot MRI: There is marrow edema in the 1st distal phalanx consistent with osteomyelitis. There is no obvious bony destruction Wound dressed with DSD No plan for surgical intervention at this time Patient to receive 4-6 weeks IV abx upon discharge Podiatry will continue to follow while patient in house
--- NOTE | 2017-11-11 17:14 | PN ---
Copied To: Adonis Nesbitt MD Attending MD: Adonis Nesbitt MD DATE: 11/11/2017 SUBJECTIVE: The patient is in bed, in no acute distress, nontoxic. PHYSICAL EXAMINATION: VITAL SIGNS: Temperature is 98, blood pressure is 130/80, and respiratory rate 20. HEENT: Unremarkable. NECK: Supple. LUNGS: Decreased breath sounds. HEART: Normal S1, S2. ABDOMEN: Soft, nontender. LABORATORY EXAMINATION: Reveals a white count of 5.2, hemoglobin of 12. Chemistries reveal a BUN of 14, creatinine of 1.1. Urinalysis is noted. Microbiology reveals the blood cultures are negative, urine cultures negative, toe cultures are pending. Review of orders reveals the patient to be on Teflaro. ASSESSMENT AND PLAN: This is a 57-year-old male with history of diabetes, peripheral artery disease, hypertension, status post right lower extremity balloon angioplasty, who is with right hallux probable osteomyelitis, skin and skin soft tissue infection with diabetes mellitus, on Teflaro. The culture is pending. The patient's toe culture from a 11/08/2017, did have Methicillin resistant staphylococcus aureus with minimum inhibitory concentration with vancomycin that is 1. We will continue the present course. Adonis Nesbitt MD
[2017-11-12] MEDS: Lactated Ringer's 1,000 ML IV SCH (00:13)
--- NOTE | 2017-11-12 01:45 | PN ---
DATE: 11/11/2017 SUBJECTIVE: The patient was seen and examined in 569, bed one. The patient is seen lying in the bed. The patient underwent angioplasty and stent placement yesterday of the right lower extremity. Patient is comfortable. The patient has a right foot dressing in place which showed no drainage or bleeding. REVIEW OF SYSTEMS: A 13-system review was done. PHYSICAL EXAMINATION: VITAL SIGNS: T-max 98.1, pulse 84, blood pressure 136/82, O2 sat 98%. HEENT: Head: Normocephalic, atraumatic. HEENT examination shows pink conjunctivae. Anicteric sclerae. No oropharyngeal lesion. No neck rigidity. CHEST: Symmetrical. LUNGS: Shows no rales, crackles or wheezing. CARDIOVASCULAR: S1 and S2, regular rhythm. ABDOMEN: Soft. Positive bowel sounds. No hepatosplenomegaly noted. GENITALIA: Male. RECTAL: Examination is deferred. GROIN: Examination is intact. EXTREMITIES: Shows positive dressing of the right lower extremity and right foot. No pitting edema, no calf tenderness, no Homans' sign. NEUROLOGIC: The patient is alert, awake, oriented x3. Cranial nerves II-XII intact. Motor strength is 5/5 upper and lower extremities. Gait examination is not tested. DIAGNOSTICS: Comprehensive metabolic panel and liver function test within normal limit. Fingerstick blood sugar 204, 121. Wound cultures from the right foot and toe are growing methicillin-resistant Staphylococcus aureus and gram-negative eileen. PSA is 0.8 and 0.9 respectively. IMPRESSION: 1. Methicillin-resistant Staphylococcus aureus and gram-negative eileen, right foot toe osteomyelitis and diabetic foot ulcer and cellulitis. 2. Peripheral vascular disease. 3. Status post right anterior tibial artery atherectomy, angioplasty and drug-eluting stent placement. 4. Right posterior tibial artery angioplasty. 5. Kissing stent placement of the right peroneal and posterior tibial artery. 6. Urinary retention, etiology undetermined. 7. Hypertension. 8. Type 2 [id number] diabetes mellitus with hemoglobin A1c of 7.7. 9. Mild normocytic anemia. 10. Granulocytosis. 11. Hyperglycemia. PLAN: At this time, the patient was seen by Infectious Disease. The patient is seen by Podiatry. The patient was seen by Interventional Radiology. Recommendations from Infectious Disease is to continue Teflaro, the duration of IV antibiotic is most likely going to be long-term IV antibiotics for at least 4-6 weeks. The patient's case is referred for discharge planning to [facility] for arrangement of long-term IV antibiotic depending upon the patient's approval for home IV antibiotics versus other alternate options. All of the above was discussed and explained to the patient in layman's language. All questions concerned answered. The patient's medications will be continued as per the MAR of today, which was reviewed. Repeat diagnostic data ordered for tomorrow. Dictated and electronically signed, not read. Miguelito Sawyer MD
[2017-11-12] MEDS: Pantoprazole 40 mg EC Tab PO SCH (06:02)
[2017-11-12] MEDS: Insulin Human NPH 1 UNITS/0.01 ML SC SCH ×2 (08:00→17:15)
[2017-11-12] MEDS: Insulin Lispro (humaLOG) MEDIUM Coverage SC SCH ×4 (08:00→22:00)
[2017-11-12] MEDS: Ceftaroline 600 MG in Sodium Chloride 0.9% 100 ML IVPB SCH ×2 (09:27→21:17)
--- NOTE | 2017-11-12 11:37 | CP.PCM.PN ---
Subjective - Date & Time of Evaluation Date of Evaluation: 11/12/17 Time of Evaluation: 11:35 - Subjective Subjective: Podiatry Progress Note for Dr. Roman 57M seen and evaluated at bedside for R hallux ulceration with underlying OM. Patient is AAO x 3 and NAD, resting comfortably in bed. Denies any acute overnight events, new pedal complaints, or pain to the ulcer site. Denies any recent N/V/F/C/CP/SOB/D/posterior calf pain when squeezed. Objective - Vital Signs/Intake and Output Vital Signs (last 24 hours): Temp Pulse Resp BP Pulse Ox 98.5 F 83 20 126/78 97 11/12/17 08:10 11/12/17 08:10 11/12/17 08:10 11/12/17 09:26 11/12/17 08:10 Intake and Output: 11/12/17 11/12/17 06:59 18:59 Intake Total 480 0 Balance 480 0 - Medications Medications: Current Medications Amlodipine Besylate (Norvasc) 5 mg PO DAILY [facility] Last Admin: 11/12/17 09:26 Dose: 5 mg Aspirin (Ecotrin) 81 mg PO DAILY [facility] Last Admin: 11/12/17 09:26 Dose: 81 mg Clopidogrel Bisulfate (Plavix) 75 mg PO DAILY [facility] Last Admin: 11/12/17 09:27 Dose: 75 mg Dextrose (Dextrose 50% Inj) 0 ml IV STAT PRN; Protocol PRN Reason: Hypoglycemia Protocol Enoxaparin Sodium (Lovenox) 40 mg SC DAILY [facility] PRN Reason: Protocol Last Admin: 11/09/17 09:48 Dose: 40 mg Dextrose (Dextrose 5% In Water 1000 Ml) 1,000 mls @ 0 mls/hr IV .Q0M PRN; Protocol; Per Protocol PRN Reason: Hypoglycemia Protocol Lactated Ringer's (Lactated Ringer's) 1,000 mls @ 70 mls/hr IV .[id number] [facility] Last Admin: 11/12/17 00:13 Dose: 70 mls/hr Ceftaroline Fosamil 600 mg/ (Sodium Chloride) 100 mls @ 100 mls/hr IVPB Q12 [facility] PRN Reason: Protocol Stop: 11/23/17 10:01 Last Admin: 11/12/17 09:27 Dose: 100 mls/hr Insulin Human Lispro (Humalog Med) 0 units SC ACHS [facility] PRN Reason: Protocol Last Admin: 11/12/17 08:00 Dose: Not Given Insulin Human NPH (Humulin N) 10 units SC ACBD [facility] Last Admin: 11/12/17 08:00 Dose: Not Given Ondansetron HCl (Zofran Inj) 4 mg IVP ONCE PRN PRN Reason: Nausea/Vomiting Pantoprazole Sodium (Protonix Ec Tab) 40 mg PO 0600 [facility] Last Admin: 11/12/17 06:02 Dose: 40 mg Tamsulosin HCl (Flomax) 0.4 mg PO DAILY [facility] Last Admin: 11/12/17 09:26 Dose: 0.4 mg - Labs Labs: 11/11/17 07:30 11/11/17 07:30 PT 11.6 SECONDS (9.4-12.5) 11/08/17 21:38 INR 1.02 11/08/17 21:38 APTT 32.4 Seconds (25.1-36.5) 11/08/17 21:38 - Constitutional Appears: Well, Non-toxic, No Acute Distress - Extremities Exam Additional comments: Right LE focused Exam: Vasc: DP/PT pulses palpable 2/4 b/l. Skin temperature warm to warm from proximal to distal. CFT < 3 seconds to all digits except right hallux. Minimal edema noted around ulceration site of hallux, improved since yesterday Neuro: Protective sensation diminished. Gross sensation intact b/l. DERM: Ulceration on the plantar distal aspect of the right hallux. the ulcer is 1cmX 0.7cmX0.1cm. No drainage, no malodor. No probing to bone, No undermining or tracking. No erythema, no other clinical signs of infection MSK: No pain on palpation of the right hallux. Muscle power intact 5/5 in all groups. - Neurological Exam Neurological Exam: Alert, Awake, Oriented x3 - Psychiatric Exam Psychiatric exam: Normal Affect, Normal Mood Assessment and Plan - Assessment and Plan (Free Text) Assessment: 57M seen and evaluated at bedside for R hallux ulceration with underlying OM Plan: Patient seen and evaluated Plan discussed with Dr. Roman Afebrile, absent leukocytosis Toe wound cx: Staph aureus, GNR Continue abx per ID 11/09 R foot xray: No radiographic evidence of OM 11/09 R foot MRI: There is marrow edema in the 1st distal phalanx consistent with osteomyelitis. There is no obvious bony destruction Wound dressed with DSD No plan for surgical intervention at this time Patient to receive 4-6 weeks IV abx upon discharge Podiatry will continue to follow while patient in house
--- NOTE | 2017-11-12 17:46 | CON ---
DATE: 11/12/2017 UROLOGY CONSULTATION Urology consultation is requested by Dr. Miguelito Sawyer. Urology consultation is filled by Dr. Miriam Rivera. REASON FOR CONSULTATION: Urinary retention. HISTORY OF PRESENT ILLNESS: The patient is a 57-year-old male with "urinary retention." The patient is in otherwise fair health. The patient was admitted to the hospital on 11/08. The patient was admitted for osteomyelitis of the right toe. The patient has had foot infections for the past several weeks. He was found to have involvement of the bone on radiologic evaluation. He is admitted for further evaluation and therapy. The patient has no history of prior difficulty voiding. He voids with good urinary stream and good control. Nocturia is 0 to 1 times per night. No history of hematuria or dysuria. The patient lives with his . There is history of diabetes mellitus. The patient has history of hypertension as well. The patient's medications have included metformin, glipizide, Plavix and aspirin. He has family history of diabetes and hypertension as well. The patient reports no history of urolithiasis. No flank pain. The patient has an angiogram today. The patient subsequently had attempt at catheterization. However, the Barrera catheter was unable to be inserted. Of note, the patient since returning to the floor was able to urinate. He urinated 600 mL. The patient reported that he is comfortable with urination. PHYSICAL EXAMINATION: GENERAL: The patient is a well-developed, well-nourished male, appearing his stated age. The patient is awake and alert. ABDOMEN: Soft, nontender, nondistended. No mass or organomegaly. BACK: No CVA tenderness. GENITALIA: Without inflammation. LABORATORY DATA: Reviewed as well. Hematocrit is 41, white blood count 4800. Hemoglobin A1c 7.7. BUN is 18, creatinine is 0.9. Estimated GFR is greater than 60. Urinalysis on 11/08 revealed glucosuria, otherwise negative. Leukocyte esterase and blood are negative. IMPRESSION: A 57-year-old male with "impending urinary retention." Patient is now clinically improved. Patient has had inability to be cared for otherwise; however, he reports that he is urinating well now. RECOMMENDATION AND PLAN: Monitor urine output. Monitor voiding pattern. I will recommend empiric therapy with tamsulosin. Monitor postvoid residuals and bladder scan. Further therapy to follow according to the patient's clinical course as well as results of above. The patient also have outpatient followup. The patient does require prostate examination as well as a serum PSA. Thank you for recommending the patient for Urology consultation. [place] MD Nicole cc: Miguelito Sawyer MD
--- NOTE | 2017-11-12 17:57 | PN ---
DATE: 11/12/2017 SUBJECTIVE: The patient is in bed, in no acute distress. No fevers and no chills. Seen earlier this morning. PHYSICAL EXAMINATION: VITAL SIGNS: On exam, temperature is 98, blood pressure is 127/81, heart rate of 95, respiratory rate of 20. HEENT: Examination of HEENT is unremarkable. NECK: Supple. LUNGS: Have decreased breath sounds. HEART: Normal S1, S2. ABDOMEN: Soft, nontender. LABORATORY DATA: Laboratory examination reveals the patient has a white count of 5.2, hemoglobin of 12 and platelets of 186. Coagulation is noted. Chemistries reveals a BUN of 14, creatinine of 1.1. Urinalysis is noted. Microbiology reveals the Staph aureus and the gram-negative eileen from the toe culture. Sensitivity is pending. Review of orders reveals the patient to be on ceftaroline. ASSESSMENT AND PLAN: A 57-year-old male who was seen with diabetes mellitus, peripheral arterial disease, hypertension, status post lower extremity balloon angioplasty, right hallux probable osteomyelitis, skin and skin soft tissue infection, diabetes mellitus. On Teflaro and cultures negative. methicillin-resistant Staphylococcus aureus. DIPIKA of 1. Continue on Teflaro at this point. Waiting for further identification and sensitivity. We will follow with you with the OR cultures. Adonis Nesbitt MD
--- NOTE | 2017-11-12 20:29 | PN ---
DATE: 11/12/2017 SUBJECTIVE: The patient is seen in room 569, bed 1. The patient is out of bed to chair. The patient is alert, awake, responsive. The patient's 13-system review was done. The patient denies. The patient's overnight nurse's notes were reviewed. No adverse events were documented. The patient was found to be comfortable this morning also. PHYSICAL EXAMINATION: VITAL SIGNS: T-max 98.1, pulse 89, blood pressure 118/73, respiration 20, O2 sat 99%. HEENT: Head: Normocephalic, atraumatic. HEENT examination shows pink conjunctivae. Anicteric sclerae. No oropharyngeal lesion. NECK: No neck rigidity. CHEST: Kyphosis. LUNGS: Shows no rales, crackles or wheezing. CARDIOVASCULAR: S1 and S2, regular rhythm. ABDOMEN: Soft. Positive bowel sound. GENITALIA: Male. RECTAL: Deferred. EXTREMITIES: Shows positive dressing of the right foot. No drainage or discharge noted. CARDIOVASCULAR: S1 and S2. No audible murmur, gallop or rub. LABORATORY DATA: None from today, 11/11 labs were reviewed. Fingerstick blood sugar is 162, 211, 128, 121, 204, 114, 115, 118. Chemistry was within normal limit. Fructosamine is elevated at 358. Hemoglobin A1c 7.7. Right foot cultures are growing MRSA and Citrobacter diversus. IMPRESSION: 1. Right foot great toe and big toe methicillin-resistant Staphylococcus aureus and Citrobacter diversus, osteomyelitis, diabetic foot ulceration and cellulitis. 2. Hypertension. 3. Peripheral vascular disease. 4. Status post abdominal aortogram and bilateral lower extremity runoff with right selective view. 5. Right anterior tibial artery atherectomy, angioplasty and proximal drug-eluting stent placement. 6. Right posterior tibial artery long segment angioplasty. 7. Right peroneal and posterior tibial artery kissing proximal angioplasty. 8. Severe peripheral vascular disease. 9. Ischemic ulceration of the right great toe. 10. Type 2 noninsulin-requiring diabetes mellitus with hemoglobin A1c of 7.7. 11. Severe right pedal occlusive disease. 12. Hypertension. 13. Mild normocytic anemia with granulocytosis. 14. Uncontrolled type 2 diabetes mellitus with hemoglobin A1c of 7.7 and fructosamine of 358. 15. Mild prerenal kidney injury. 16. Glycosuria. 17. Questionable postoperative urinary retention. 18. Right foot great toe, right hallux ulceration and osteomyelitis. PLAN AT THIS TIME: The patient's case is referred to [facility] Supervisor for long duration IV antibiotic for at least 4-6 weeks. CURRENT PLAN: The patient has been ordered repeat labs for the morning. CONSULTATION: Infectious Disease, Podiatry, Interventional Radiology, Urology. Case referred to TCU, latent print examiner. CURRENT MEDICATIONS: Aspirin 81 mg daily, Flomax 0.4 mg daily, Humalog medium dose sliding scale coverage, NPH 10 units with breakfast and dinner, Lovenox 40 mg subcu daily, Norvasc 5 mg daily, Plavix 75 mg daily, Protonix 40 mg daily for GI prophylaxis, Teflaro 600 mg IV every 12, Zofran 4 mg IV every 4 hours p.r.n., incentive spirometry, heart-healthy diet. The patient's insulin doses maybe considered to be increased, if the patient develops hyperglycemia. The patient updated about his condition, diagnosis, treatment plan, and duration. Long-term IV antibiotic duration was explained to the patient at length and all questions concerned. The patient stated that he would prefer to have home IV antibiotic treatment, which I explained to the patient depends upon the insurance approval and further insurance recommendation. Dictated and electronically signed, not read. Miguelito Sawyer MD
[2017-11-13] MEDS: Pantoprazole 40 mg EC Tab PO SCH (05:00)
[2017-11-13 07:24] LABS: BASO # 0.01 K/mm3 (0.0-2.0); BASO % 0.2 % (0.0-3.0); EOS # 0.1 (0.0-0.7); EOS % 2.2 % (1.5-5.0); GRAN # 2.56 (1.4-6.5); GRAN % 61.3 % (50.0-68.0); HEMOGLOBIN 12.5 g/dL (14.0-18.0); LYMPH # 1.1 (1.2-3.4); MEAN CELL VOLUME 95.1 fl (80.0-105.0); MEAN CORPUSCULAR HEMOGLOBIN 32.4 pg (25.0-35.0); MEAN CORPUSCULAR HGB CONC 34.1 g/dl (31.0-37.0); MONO # 0.4 (0.1-0.6); MONO % 9.3 % (1.0-6.0); RBC 3.86 10^6/uL (3.5-6.1); RED CELL DISTRIBUTION WIDTH 12.5 % (11.5-14.5); WHITE BLOOD COUNT 4.2 10^3/ul (4.5-11.0)
[2017-11-13 08:00] LABS: ALB/GLOB RATIO 1.2 (1.1-1.8); ALBUMIN 3.8 g/dL (3.0-4.8); ALT/SGPT 35 U/L (7-56); AST/SGOT 30 U/L (17-59); BILIRUBIN,DIRECT 0.2 mg/dL (0.0-0.4); BLOOD UREA NITROGEN 17 mg/dL (7-21); CALCIUM 9.2 mg/dL (8.4-10.5); GFR NON-AFRICAN AMERICAN > 60
[2017-11-13] MEDS: Insulin Lispro (humaLOG) MEDIUM Coverage SC SCH ×4 (08:12→22:15)
[2017-11-13] MEDS: Insulin Human NPH 1 UNITS/0.01 ML SC SCH ×2 (08:17→17:36)
[2017-11-13] MEDS: Ceftaroline 600 MG in Sodium Chloride 0.9% 100 ML IVPB SCH ×2 (09:46→21:17)
--- NOTE | 2017-11-13 19:34 | CP.PCM.PN ---
<Blayne Matson - Last Filed: 11/13/17 19:28> Subjective - Date & Time of Evaluation Date of Evaluation: 11/13/17 Time of Evaluation: 19:28 - Subjective Subjective: Podiatry Progress Note for Dr. Roman 57 Y/O M patient seen and evaluated at bedside for R hallux ulceration with underlying OM. Patient is AAO x 3 and NAD, resting comfortably in bed. Patient denies any acute overnight events, Patient denies any new pedal complaints, patient denies any pain to the ulcer site. Patient denies any overnight N/V/F/C or SOB Objective - Vital Signs/Intake and Output Vital Signs (last 24 hours): Temp Pulse Resp BP Pulse Ox 97.3 F L 86 99 H 134/84 99 11/13/17 14:00 11/13/17 14:00 11/13/17 14:00 11/13/17 14:00 11/13/17 06:00 - Medications Medications: Current Medications Amlodipine Besylate (Norvasc) 5 mg PO DAILY [facility] Last Admin: 11/13/17 09:46 Dose: 5 mg Aspirin (Ecotrin) 81 mg PO DAILY [facility] Last Admin: 11/13/17 09:46 Dose: 81 mg Clopidogrel Bisulfate (Plavix) 75 mg PO DAILY [facility] Last Admin: 11/13/17 09:46 Dose: 75 mg Dextrose (Dextrose 50% Inj) 0 ml IV STAT PRN; Protocol PRN Reason: Hypoglycemia Protocol Enoxaparin Sodium (Lovenox) 40 mg SC DAILY [facility] PRN Reason: Protocol Last Admin: 11/09/17 09:48 Dose: 40 mg Dextrose (Dextrose 5% In Water 1000 Ml) 1,000 mls @ 0 mls/hr IV .Q0M PRN; Protocol; Per Protocol PRN Reason: Hypoglycemia Protocol Ceftaroline Fosamil 600 mg/ (Sodium Chloride) 100 mls @ 100 mls/hr IVPB Q12 [facility] PRN Reason: Protocol Stop: 11/23/17 10:01 Last Admin: 11/13/17 09:46 Dose: 100 mls/hr Insulin Human Lispro (Humalog Med) 0 units SC ACHS [facility] PRN Reason: Protocol Last Admin: 11/13/17 17:37 Dose: 1 units Insulin Human NPH (Humulin N) 10 units SC ACBD [facility] Last Admin: 11/13/17 17:36 Dose: 10 units Ondansetron HCl (Zofran Inj) 4 mg IVP Q4H PRN PRN Reason: Nausea/Vomiting Pantoprazole Sodium (Protonix Ec Tab) 40 mg PO 0600 [facility] Last Admin: 11/13/17 05:00 Dose: 40 mg Tamsulosin HCl (Flomax) 0.4 mg PO DAILY [facility] Last Admin: 11/13/17 09:46 Dose: 0.4 mg - Labs Labs: 11/13/17 06:30 11/13/17 06:30 PT 11.6 SECONDS (9.4-12.5) 11/08/17 21:38 INR 1.02 11/08/17 21:38 APTT 32.4 Seconds (25.1-36.5) 11/08/17 21:38 - Constitutional Appears: Well, Non-toxic, No Acute Distress - Head Exam Head Exam: ATRAUMATIC, NORMOCEPHALIC - Extremities Exam Additional comments: Right LE focused Exam: Vasc: DP/PT pulses palpable 2/4 b/l. Skin temperature warm to warm from proximal to distal. Cap refill < 3 seconds to all digits except right hallux. Minimal edema noted around ulceration site of hallux, improved since yesterday Neuro: Protective sensation diminished. Gross sensation intact b/l. DERM: Ulceration on the plantar distal aspect of the right hallux. the ulcer is 1cmX 0.7cmX0.1cm. Ulcer base is necrotic, Minimal purulent drainage, positive malodor. No probing to bone, No undermining or tracking. No erythema, no other clinical signs of infection MSK: No pain on palpation of the right hallux. Muscle power intact 5/5 in all groups. - Neurological Exam Neurological Exam: Alert, Awake, Oriented x3 - Psychiatric Exam Psychiatric exam: Normal Affect, Normal Mood Assessment and Plan - Assessment and Plan (Free Text) Assessment: 57 M patient seen and evaluated at bedside for R hallux ulceration with underlying OM Plan: Patient seen and evaluated at the bed side with Dr. Roman Plan discussed with Dr. Roman Chart, labs and vitals reviewed; Afebrile, absent leukocytosis Toe wound cx: Staph aureus, GNR Continue abx per ID 11/09 R foot xray: No radiographic evidence of OM 11/09 R foot MRI: There is marrow edema in the 1st distal phalanx consistent with osteomyelitis. There is no obvious bony destruction Bedside I & D performed using sterile scissors. About 2 cc pus expressed. Wound flushed with sterile saline, hydrogel applied dressed with DSD Ordered SSd cream. Right hallux ulcer to be dressed using SSD starting from tomorrow. No plan for surgical intervention at this time. Patient to receive 4-6 weeks IV abx upon discharge. Podiatry will continue to follow while patient in house <Zeynep Roman - Last Filed: 11/15/17 13:21> Objective - Vital Signs/Intake and Output Vital Signs (last 24 hours): Temp Pulse Resp BP Pulse Ox 98.5 F 20 L 98 H 131/72 98 11/14/17 06:00 11/14/17 06:00 11/14/17 06:00 11/14/17 09:36 11/14/17 06:00 - Labs Labs: 11/13/17 06:30 11/13/17 06:30 PT 11.6 SECONDS (9.4-12.5) 11/08/17 21:38 INR 1.02 11/08/17 21:38 APTT 32.4 Seconds (25.1-36.5) 11/08/17 21:38 Attending/Attestation - Attestation I have personally seen and examined this patient.: Yes I have fully participated in the care of the patient.: Yes I have reviewed all pertinent clinical information, including history, physical exam and plan: Yes
--- NOTE | 2017-11-13 21:20 | CP.PCM.PN ---
Subjective - Date & Time of Evaluation Date of Evaluation: 11/13/17 Time of Evaluation: 13:35 - Subjective Subjective: Comfortable, no fevers, not in distress, no increase in foot pain. Objective - Vital Signs/Intake and Output Vital Signs (last 24 hours): Temp Pulse Resp BP Pulse Ox 97.3 F L 86 99 H 134/84 99 11/13/17 14:00 11/13/17 14:00 11/13/17 14:00 11/13/17 14:00 11/13/17 06:00 - Medications Medications: Current Medications Amlodipine Besylate (Norvasc) 5 mg PO DAILY [facility] Last Admin: 11/13/17 09:46 Dose: 5 mg Aspirin (Ecotrin) 81 mg PO DAILY [facility] Last Admin: 11/13/17 09:46 Dose: 81 mg Clopidogrel Bisulfate (Plavix) 75 mg PO DAILY [facility] Last Admin: 11/13/17 09:46 Dose: 75 mg Dextrose (Dextrose 50% Inj) 0 ml IV STAT PRN; Protocol PRN Reason: Hypoglycemia Protocol Enoxaparin Sodium (Lovenox) 40 mg SC DAILY [facility] PRN Reason: Protocol Last Admin: 11/09/17 09:48 Dose: 40 mg Dextrose (Dextrose 5% In Water 1000 Ml) 1,000 mls @ 0 mls/hr IV .Q0M PRN; Protocol; Per Protocol PRN Reason: Hypoglycemia Protocol Ceftaroline Fosamil 600 mg/ (Sodium Chloride) 100 mls @ 100 mls/hr IVPB Q12 [facility] PRN Reason: Protocol Stop: 11/23/17 10:01 Last Admin: 11/13/17 09:46 Dose: 100 mls/hr Insulin Human Lispro (Humalog Med) 0 units SC ACHS [facility] PRN Reason: Protocol Last Admin: 11/13/17 17:37 Dose: 1 units Insulin Human NPH (Humulin N) 10 units SC ACBD [facility] Last Admin: 11/13/17 17:36 Dose: 10 units Ondansetron HCl (Zofran Inj) 4 mg IVP Q4H PRN PRN Reason: Nausea/Vomiting Pantoprazole Sodium (Protonix Ec Tab) 40 mg PO 0600 [facility] Last Admin: 11/13/17 05:00 Dose: 40 mg Silver Sulfadiazine (Silvadene 1% 25 Gm) 1 gm TP QD7 [facility] Tamsulosin HCl (Flomax) 0.4 mg PO DAILY [facility] Last Admin: 11/13/17 09:46 Dose: 0.4 mg - Labs Labs: 11/13/17 06:30 11/13/17 06:30 PT 11.6 SECONDS (9.4-12.5) 11/08/17 21:38 INR 1.02 11/08/17 21:38 APTT 32.4 Seconds (25.1-36.5) 11/08/17 21:38 - Constitutional Appears: No Acute Distress, Chronically Ill - Head Exam Head Exam: NORMAL INSPECTION - Respiratory Exam Respiratory Exam: Decreased Breath Sounds - Cardiovascular Exam Cardiovascular Exam: +S1, +S2 - GI/Abdominal Exam GI & Abdominal Exam: Soft. absent: Tenderness - Extremities Exam Additional comments: right foot with dressings in place Assessment and Plan - Assessment and Plan (Free Text) Plan: Assessment Right hallux probable osteomyelitis with skin and skin structure infection, associated with peripheral arterial disease, growing MRSA and Citrobacter, S/P angioplasty DM peripheral arterial disease HTN S/P right lower extremity balloon angioplasty Plan continue Teflaro; can switch to Zyvox and Rocephin with weekly ESR, CRP, CBC, CMP while on antibiotics; should complete 4-6 weeks with follow up with Dr. Roman at the wound center
--- NOTE | 2017-11-13 22:09 | CP.PCM.PN ---
Subjective - Date & Time of Evaluation Date of Evaluation: 11/13/17 Time of Evaluation: 09:30 - Subjective Subjective: PGY-[address] Sawyer No acute events noted overnight. Patient was seen after PICC placement today. His right foot was dressed by podiatry earlier. He said it felt well. He denied f/c, n/v, cp, sob. Objective - Vital Signs/Intake and Output Vital Signs (last 24 hours): Temp Pulse Resp BP Pulse Ox 97.3 F L 86 99 H 134/84 99 11/13/17 14:00 11/13/17 14:00 11/13/17 14:00 11/13/17 14:00 11/13/17 06:00 - Medications Medications: Current Medications Amlodipine Besylate (Norvasc) 5 mg PO DAILY [facility] Last Admin: 11/13/17 09:46 Dose: 5 mg Aspirin (Ecotrin) 81 mg PO DAILY [facility] Last Admin: 11/13/17 09:46 Dose: 81 mg Clopidogrel Bisulfate (Plavix) 75 mg PO DAILY [facility] Last Admin: 11/13/17 09:46 Dose: 75 mg Dextrose (Dextrose 50% Inj) 0 ml IV STAT PRN; Protocol PRN Reason: Hypoglycemia Protocol Enoxaparin Sodium (Lovenox) 40 mg SC DAILY [facility] PRN Reason: Protocol Last Admin: 11/09/17 09:48 Dose: 40 mg Dextrose (Dextrose 5% In Water 1000 Ml) 1,000 mls @ 0 mls/hr IV .Q0M PRN; Protocol; Per Protocol PRN Reason: Hypoglycemia Protocol Ceftaroline Fosamil 600 mg/ (Sodium Chloride) 100 mls @ 100 mls/hr IVPB Q12 [facility] PRN Reason: Protocol Stop: 11/23/17 10:01 Last Admin: 11/13/17 21:17 Dose: 100 mls/hr Insulin Human Lispro (Humalog Med) 0 units SC ACHS [facility] PRN Reason: Protocol Last Admin: 11/13/17 17:37 Dose: 1 units Insulin Human NPH (Humulin N) 10 units SC ACBD [facility] Last Admin: 11/13/17 17:36 Dose: 10 units Ondansetron HCl (Zofran Inj) 4 mg IVP Q4H PRN PRN Reason: Nausea/Vomiting Pantoprazole Sodium (Protonix Ec Tab) 40 mg PO 0600 [facility] Last Admin: 11/13/17 05:00 Dose: 40 mg Silver Sulfadiazine (Silvadene 1% 25 Gm) 1 gm TP QD7 [facility] Tamsulosin HCl (Flomax) 0.4 mg PO DAILY [facility] Last Admin: 11/13/17 09:46 Dose: 0.4 mg - Labs Labs: 11/13/17 06:30 11/13/17 06:30 PT 11.6 SECONDS (9.4-12.5) 11/08/17 21:38 INR 1.02 11/08/17 21:38 APTT 32.4 Seconds (25.1-36.5) 11/08/17 21:38 - Additional Findings Additional findings: - Constitutional Appears: Well, Non-toxic, No Acute Distress - Head Exam Head Exam: NORMAL INSPECTION - Eye Exam Eye Exam: Normal appearance - ENT Exam ENT Exam: Mucous Membranes Moist - Neck Exam Neck Exam: Normal Inspection - Respiratory Exam Respiratory Exam: Clear to Ausculation Bilateral, NORMAL BREATHING PATTERN - Cardiovascular Exam Cardiovascular Exam: RRR, +S1, +S2 - GI/Abdominal Exam GI & Abdominal Exam: Soft. absent: Distended, Tenderness - Extremities Exam Extremities Exam: Full ROM Additional comments: right first toe erythema and warmth - Back Exam Back Exam: NORMAL INSPECTION - Neurological Exam Neurological Exam: Alert, Awake, Normal Gait, Oriented x3 - Psychiatric Exam Psychiatric exam: Normal Mood - Skin Skin Exam: Normal Color Assessment and Plan - Assessment and Plan (Free Text) Plan: 57 yo AAM with a PMH of PVD and DM2 presenting for R first distal phalanx cellulitis, suspicious for osteomyelitis as seen on MRI. Cellulitis of first phalanx right foot 2/2 DM2 and PVD - cont ceftaroline - cont ASA/Plavix - DVT ppx Lovenox held due to angio planned for today - blood, urine and wound cxs pending - ID consulted, recs appreciated - Podiatry consulted, recs appreciated - IR/Dr. Ya consulted, further recs appreciated Hx DM2 - CCD - ISS - Accuchecks ACHS PPX - Lovenox for DVT ppx; held per IR recs - PTX for GI ppx Case was reviewed and discussed with attending, Dr. Sawyer
--- NOTE | 2017-11-14 05:24 | PN ---
DATE: 11/13/2017 SUBJECTIVE: The patient was seen in the morning in 561, bed 1 when the patient was in the process of getting a left upper extremity PICC line placement. PHYSICAL EXAMINATION: VITAL SIGNS: T-max 98.4; heart rate 89 to 86; blood pressure 125/74, 126/76; respiration 20, O2 sat 99%. GENERAL: The patient was seen initially lying in the bed, then the patient was seen and examined sitting up in the chair. HEENT: Head: Normocephalic, atraumatic. HEENT examination shows pink conjunctivae. Anicteric sclerae. No oropharyngeal lesion. No neck rigidity. CHEST: Kyphosis. LUNGS: Examination shows no rales, crackles or wheezing. CARDIOVASCULAR: S1, S2, regular rhythm. ABDOMEN: Soft. Positive bowel sound. GENITALIA: Male. RECTAL: Examination is deferred. EXTREMITIES: Shows positive left upper extremity PICC line placement site intact. Lower extremity shows positive right foot dressing. Gait examination is not tested. MUSCULOSKELETAL: Examination shows a body mass index of 25. DIAGNOSTICS: From 11/13, WBC is 4.2, hemoglobin/hematocrit 12.5/36.7, platelet 190. Sodium 138, potassium 4.2, chloride 102, CO2 28, anion gap 12, BUN 17, creatinine 1.1, GFR greater than 60, glucose 135. Fingerstick blood sugar 203, 120, 132, 163, 240. Calcium 9.2, phosphorus 3.7, magnesium 2.1. LFTs are normal. Right foot toe cultures, MRSA and Citrobacter diversus. IMPRESSION: 1. Right foot great toe methicillin-resistant Staphylococcus aureus and Citrobacter diversus, osteomyelitis, diabetic foot ulcer and cellulitis. 2. Right foot hallux osteomyelitis with skin and skin structure infection secondary to methicillin-resistant Staphylococcus aureus and Citrobacter. 3. Severe peripheral vascular disease. 4. Hypertension. 5. Non-insulin requiring type 2 diabetes mellitus with hemoglobin A1c of 7.7. 6. Leukopenia. 7. Anemia. 8. Granulocytosis. 9. Hyperglycemia with uncontrolled type 2 diabetes mellitus and hemoglobin A1c of 7.7. 10. Questionable transient urinary retention. 12. Elevated fructosamine level of 358. 13. Glycosuria. 14. Status post left upper extremity PICC line placement. PLAN: At this time, the patient's case has been referred to Case Management and [facility] [employer] for long-term IV antibiotic. The patient's case referred for discharge planning for home IV antibiotics if approved. The patient was seen by Infectious Disease, awaiting their recommendation. If the patient's home IV antibiotics are arranged as per the Infectious Disease's recommendation, we will write the scripts for the IV home antibiotics with weekly labs to be followed in our office which will be done in the office which the patient is agreeable to. Dictated and electronically signed, not read. Miguelito Sawyer MD
[2017-11-14] MEDS: Pantoprazole 40 mg EC Tab PO SCH (06:45)
[2017-11-14] MEDS ORDERED: Silver Sulfadiazine 1% Cream (25 gm) TP SCH (07:30)
[2017-11-14 08:26] VITALS: BP 131/72; TEMP 98.5; O2SAT 98
[2017-11-14] MEDS: Insulin Lispro (humaLOG) MEDIUM Coverage SC SCH ×2 (08:28→14:59)
[2017-11-14] MEDS: Insulin Human NPH 1 UNITS/0.01 ML SC SCH (08:29)
[2017-11-14 08:30] VITALS: PULSE 20; RESP 98
[2017-11-14] MEDS: Ceftaroline 600 MG in Sodium Chloride 0.9% 100 ML IVPB SCH (09:43)
--- NOTE | 2017-11-14 11:51 | CP.PCM.PN ---
Addendum entered and electronically signed by Blayne Matson DPM 11/14/17 13:23: Plan: Patient will follow up in the wound care center at [place] upon discharge. Original Note: <Blayne Matson - Last Filed: 11/14/17 13:18> Subjective - Date & Time of Evaluation Date of Evaluation: 11/14/17 Time of Evaluation: 13:18 - Subjective Subjective: Podiatry Progress Note for Dr. Ann; 57 Y/O M patient seen and evaluated at bedside for R hallux ulceration with underlying OM. Patient is AAO x 3 and NAD, resting comfortably in bed. Patient denies any acute overnight events, Patient denies any new pedal complaints, patient denies any pain to the ulcer site. Patient denies any overnight N/V/F/C or SOB. Objective - Vital Signs/Intake and Output Vital Signs (last 24 hours): Temp Pulse Resp BP Pulse Ox 98.5 F 20 L 98 H 131/72 98 11/14/17 06:00 11/14/17 06:00 11/14/17 06:00 11/14/17 09:36 11/14/17 06:00 Intake and Output: 11/14/17 11/14/17 06:59 18:59 Intake Total 1120 Balance 1120 - Medications Medications: Current Medications Amlodipine Besylate (Norvasc) 5 mg PO DAILY [facility] Last Admin: 11/14/17 09:36 Dose: 5 mg Aspirin (Ecotrin) 81 mg PO DAILY [facility] Last Admin: 11/14/17 09:40 Dose: 81 mg Clopidogrel Bisulfate (Plavix) 75 mg PO DAILY [facility] Last Admin: 11/14/17 09:41 Dose: 75 mg Dextrose (Dextrose 50% Inj) 0 ml IV STAT PRN; Protocol PRN Reason: Hypoglycemia Protocol Enoxaparin Sodium (Lovenox) 40 mg SC DAILY [facility]; Protocol Last Admin: 11/09/17 09:48 Dose: 40 mg Dextrose (Dextrose 5% In Water 1000 Ml) 1,000 mls @ 0 mls/hr IV .Q0M PRN; Protocol PRN Reason: Hypoglycemia Protocol Insulin Human Lispro (Humalog Med) 0 units SC ACHS [facility]; Protocol Last Admin: 11/14/17 08:28 Dose: Not Given Insulin Human NPH (Humulin N) 10 units SC ACBD [facility] Last Admin: 11/14/17 08:29 Dose: Not Given Ondansetron HCl (Zofran Inj) 4 mg IVP Q4H PRN PRN Reason: Nausea/Vomiting Pantoprazole Sodium (Protonix Ec Tab) 40 mg PO 0600 [facility] Last Admin: 11/14/17 06:45 Dose: 40 mg Silver Sulfadiazine (Silvadene 1% 25 Gm) 1 gm TP QD7 [facility] Tamsulosin HCl (Flomax) 0.4 mg PO DAILY [facility] Last Admin: 11/14/17 09:36 Dose: 0.4 mg - Labs Labs: 11/13/17 06:30 11/13/17 06:30 PT 11.6 SECONDS (9.4-12.5) 11/08/17 21:38 INR 1.02 11/08/17 21:38 APTT 32.4 Seconds (25.1-36.5) 11/08/17 21:38 - Constitutional Appears: Well, Non-toxic, No Acute Distress - Head Exam Head Exam: ATRAUMATIC, NORMOCEPHALIC - Extremities Exam Additional comments: Right LE focused Exam: Vasc: DP/PT pulses palpable 2/4 b/l. Skin temperature warm to warm from proximal to distal. Cap refill < 3 seconds to all digits except right hallux. Minimal edema noted around ulceration site of hallux, improved since yesterday Neuro: Protective sensation diminished. Gross sensation intact b/l. DERM: Ulceration on the plantar distal aspect of the right hallux. the ulcer is 1cmX 0.7cmX0.1cm. Ulcer base is necrotic, Minimal purulent drainage, positive malodor. No probing to bone, No undermining or tracking. No erythema, no other clinical signs of infection MSK: No pain on palpation of the right hallux. Muscle power intact 5/5 in all groups. - Neurological Exam Neurological Exam: Alert, Awake, Oriented x3 - Psychiatric Exam Psychiatric exam: Normal Affect, Normal Mood Assessment and Plan - Assessment and Plan (Free Text) Assessment: 57 y/o M patient seen and evaluated at bedside for R hallux ulceration with underlying OM Plan: Patient seen and evaluated at the bed side with Dr. Ann Plan discussed with Dr. Ann Chart, labs and vitals reviewed; Afebrile, absent leukocytosis Toe wound cx: Staph aureus, GNR Continue abx per ID 11/09 R foot X-ray: No radiographic evidence of OM 11/09 R foot MRI: There is marrow edema in the 1st distal phalanx consistent with osteomyelitis. There is no obvious bony destruction Ordered SSd cream. Right hallux ulcer dressed using SSD and DSD. No plan for surgical intervention at this time. Patient to receive 4-6 weeks IV abx upon discharge. Patient will be discharged today by the primary team. Podiatry will continue to follow while patient in house. <Mars Ann - Last Filed: 11/14/17 15:51> Objective - Vital Signs/Intake and Output Vital Signs (last 24 hours): Temp Pulse Resp BP Pulse Ox 98.5 F 20 L 98 H 131/72 98 11/14/17 06:00 11/14/17 06:00 11/14/17 06:00 11/14/17 09:36 11/14/17 06:00 Intake and Output: 11/14/17 11/14/17 06:59 18:59 Intake Total 1120 Balance 1120 - Medications Medications: Current Medications Amlodipine Besylate (Norvasc) 5 mg PO DAILY [facility] Last Admin: 11/14/17 09:36 Dose: 5 mg Aspirin (Ecotrin) 81 mg PO DAILY [facility] Last Admin: 11/14/17 09:40 Dose: 81 mg Clopidogrel Bisulfate (Plavix) 75 mg PO DAILY [facility] Last Admin: 11/14/17 09:41 Dose: 75 mg Dextrose (Dextrose 50% Inj) 0 ml IV STAT PRN; Protocol PRN Reason: Hypoglycemia Protocol Enoxaparin Sodium (Lovenox) 40 mg SC DAILY [facility]; Protocol Last Admin: 11/09/17 09:48 Dose: 40 mg Dextrose (Dextrose 5% In Water 1000 Ml) 1,000 mls @ 0 mls/hr IV .Q0M PRN; Protocol PRN Reason: Hypoglycemia Protocol Insulin Human Lispro (Humalog Med) 0 units SC ACHS [facility]; Protocol Last Admin: 11/14/17 14:59 Dose: 5 units Insulin Human NPH (Humulin N) 10 units SC ACBD [facility] Last Admin: 11/14/17 08:29 Dose: Not Given Ondansetron HCl (Zofran Inj) 4 mg IVP Q4H PRN PRN Reason: Nausea/Vomiting Pantoprazole Sodium (Protonix Ec Tab) 40 mg PO 0600 [facility] Last Admin: 11/14/17 06:45 Dose: 40 mg Silver Sulfadiazine (Silvadene 1% 25 Gm) 1 gm TP QD7 [facility] Tamsulosin HCl (Flomax) 0.4 mg PO DAILY [facility] Last Admin: 11/14/17 09:36 Dose: 0.4 mg - Labs Labs: 11/13/17 06:30 11/13/17 06:30 PT 11.6 SECONDS (9.4-12.5) 11/08/17 21:38 INR 1.02 11/08/17 21:38 APTT 32.4 Seconds (25.1-36.5) 11/08/17 21:38 Attending/Attestation - Attestation I have personally seen and examined this patient.: Yes I have fully participated in the care of the patient.: Yes I have reviewed all pertinent clinical information, including history, physical exam and plan: Yes
[2017-11-14] MEDS ORDERED: Linezolid 600 mg in D5W 300 ml 600 MG/300 ML BAG IVPB ONE (12:00)
[2017-11-14] MEDS ORDERED: cefTRIAXone 2 gm in NS 100ml IVPB ONE (12:00)
--- NOTE | 2017-11-14 17:22 | CP.PCM.PN ---
Subjective - Date & Time of Evaluation Date of Evaluation: 11/14/17 Time of Evaluation: 11:15 - Subjective Subjective: No fevers, no increased pain in the right foot, no nausea, no diarrhea. Objective - Vital Signs/Intake and Output Vital Signs (last 24 hours): Temp Pulse Resp BP Pulse Ox 98.5 F 20 L 98 H 131/72 98 11/14/17 06:00 11/14/17 06:00 11/14/17 06:00 11/14/17 09:36 11/14/17 06:00 Intake and Output: 11/14/17 11/14/17 06:59 18:59 Intake Total 1120 Balance 1120 - Labs Labs: 11/13/17 06:30 11/13/17 06:30 PT 11.6 SECONDS (9.4-12.5) 11/08/17 21:38 INR 1.02 11/08/17 21:38 APTT 32.4 Seconds (25.1-36.5) 11/08/17 21:38 - Constitutional Appears: Non-toxic, No Acute Distress, Chronically Ill - Head Exam Head Exam: NORMAL INSPECTION - ENT Exam ENT Exam: Mucous Membranes Moist - Respiratory Exam Respiratory Exam: Decreased Breath Sounds - Cardiovascular Exam Cardiovascular Exam: +S1, +S2 - GI/Abdominal Exam GI & Abdominal Exam: Soft. absent: Tenderness - Extremities Exam Additional comments: right foot with dressings in place Assessment and Plan - Assessment and Plan (Free Text) Plan: Assessment Right hallux probable osteomyelitis with skin and skin structure infection, associated with peripheral arterial disease, growing MRSA and Citrobacter, S/P angioplasty DM peripheral arterial disease HTN S/P right lower extremity balloon angioplasty Plan on Teflaro; can switch to Zyvox and Rocephin with weekly ESR, CRP, CBC, CMP while on antibiotics; should complete 4-6 weeks with follow up with Dr. Roman at the wound center as an outpatient discussed with Dr. Sawyer
--- NOTE | 2017-11-15 13:36 | DS ---
HISTORY OF PRESENT ILLNESS: The patient was finally cleared for discharge by Infectious Disease, Podiatry. Patient was arranged for home IV antibiotics by the Denitrator with Zyvox 600 twice a day and Rocephin 2 g IV daily for six weeks. The patient was seen sitting up in the bed in room 569, bed 1. REVIEW OF SYSTEMS: The patient's 13-system review was negative. The patient did not offer any specific complaints. PHYSICAL EXAMINATION: VITAL SIGNS: T-max 98.5; pulse 83, respirations 20, blood pressure 131/72, O2 saturation 98%. HEENT: Head examination: Normocephalic, atraumatic. HEENT examination shows pink conjunctivae. Anicteric sclerae. No oropharyngeal lesion. NECK: No neck rigidity. CHEST: Kyphosis. LUNGS: Shows no rales, crackles or wheezing. CARDIOVASCULAR: S1, S2. Regular rhythm. No audible murmur, gallop or rub. ABDOMEN: Soft. Positive bowel sounds. GENITALIA: Male. RECTAL: Deferred. EXTREMITIES: Shows no pitting edema, no calf tenderness, no Luh's sign. Positive right foot dressing noted. No drainage or discharge noted. VASCULAR: Palpable pulses. No pitting edema. No swelling noted. Motor strength is 5/5. Gait examination not tested. MUSCULOSKELETAL: Shows a body mass index of 25. DIAGNOSTIC DATA: Fingerstick blood sugar 251, , 240, 163. The patient's HIV is nonreactive. Microbiology is still growing MRSA and Citrobacter diversus. FINAL IMPRESSION, PLAN AND DISCHARGE DIAGNOSES: 1. Right foot toe and hallux osteomyelitis with skin, skin structure infection and diabetic foot ulceration. 2. Severe peripheral vascular disease. 3. Methicillin-resistant Staphylococcus aureus and Citrobacter diversus, right foot great toe osteomyelitis, diabetic ulceration. 4. The patient cleared by Infectious Disease and Podiatry. 5. Hypertension. 6. Leukopenia. 7. Thrombocytopenia. 8. Granulocytosis. 9. Uncontrolled diabetes mellitus with hemoglobin A1c of 7.7. 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 11. Glycosuria. DISCHARGE MEDICATIONS: Norvasc 5 mg daily, Ecotrin 81 mg daily, Rocephin 2 g IV daily for six weeks, Plavix 75 mg daily, Glucotrol 10 mg daily, Zyvox 600 mg twice a day for six weeks, metformin 1000 mg twice a day, Silvadene cream to the affected area, Flomax 0.4 mg daily. The patient was discharged home after home IV antibiotics arranged. The patient is discharged. Follow up with Dr. Sawyer within one week. All weekly labs to be done at Dr. Sawyer's office . Follow up with Dr. Roman within one week. Discharge medication as per updated ambulatory orders plus new script. During this hospitalization, the patient was extensively explained about the details of the medical condition; diagnoses, test results, recommendation by all the physician was explained on a daily basis at length and all questions concerned answered to patient' satisfaction. Time spent in the discharge process was 45 minutes. Dictated and electronically signed, not read. Miguelito Sawyer MD
== END 2017-11-14 16:38 | disposition home or self-care (01) | DRG 271 ==
LOC: ED 17:30 → ERH 20:11 → 5RSO 11-09 00:07 → 5RNO 11-10 14:00 → 2RSO 11-10 14:47 → 5RNO 11-10 21:22
PROVIDERS: ADMIT Internal Medicine; ATTEND Internal Medicine
PROC: 04CP3ZZ Extirpation of Matter from Right Anterior Tibial Artery, Percutaneous Approach (ICD-10-PCS; principal; 2017-11-10)
PROC: 047P34Z Dilation of Right Anterior Tibial Artery with Drug-eluting Intraluminal Device, Percutaneous Approach (ICD-10-PCS; 2017-11-10)
PROC: 047R3ZZ Dilation of Right Posterior Tibial Artery, Percutaneous Approach (ICD-10-PCS; 2017-11-10)
PROC: 047T3ZZ Dilation of Right Peroneal Artery, Percutaneous Approach (ICD-10-PCS; 2017-11-10)
PROC: 02HV33Z Insertion of Infusion Device into Superior Vena Cava, Percutaneous Approach (ICD-10-PCS; 2017-11-13)
PROC: B54NZZA Ultrasonography of Left Upper Extremity Veins, Guidance (ICD-10-PCS; 2017-11-13)
DX: E11.51 Type 2 diabetes mellitus with diabetic peripheral angiopathy without gangrene (principal); M86.8X7 Other osteomyelitis, ankle and foot; E11.69 Type 2 diabetes mellitus with other specified complication; E11.621 Type 2 diabetes mellitus with foot ulcer; L97.519 Non-pressure chronic ulcer of other part of right foot with unspecified severity; B95.62 Methicillin resistant Staphylococcus aureus infection as the cause of diseases classified elsewhere; B96.89 Other specified bacterial agents as the cause of diseases classified elsewhere; L03.031 Cellulitis of right toe; E11.65 Type 2 diabetes mellitus with hyperglycemia; I10 Essential (primary) hypertension; D64.9 Anemia, unspecified; M19.071 Primary osteoarthritis, right ankle and foot; I45.10 Unspecified right bundle-branch block; R33.9 Retention of urine, unspecified; D72.819 Decreased white blood cell count, unspecified; Z79.84 Long term (current) use of oral hypoglycemic drugs; Z79.02 Long term (current) use of antithrombotics/antiplatelets; Z79.82 Long term (current) use of aspirin; Z86.010 Personal history of colon polyps; Z82.49 Family history of ischemic heart disease and other diseases of the circulatory system; Z83.3 Family history of diabetes mellitus

== ENCOUNTER 2018-01-31 05:56 | Day surgery (SDC) | payer BC ==
[2018-01-25 11:17] VITALS: BMI 28.9
[2018-01-31] MEDS ORDERED: Lidocaine 2% Inj (20ml) ONE (07:15)
[2018-01-31] MEDS ORDERED: ceFAZolin 1 gm in NS 1 GM/100 ML BAG IVPB STA (07:53)
[2018-01-31] MEDS ORDERED: Gentamicin 80 mg/2mL Inj. ONE (08:02)
[2018-01-31] MEDS ORDERED: Lidocaine 2% Inj (20ml) IJ ONE (08:09)
[2018-01-31] MEDS ORDERED: CeFAZolin 1 gm in NS 100ml IVPB ONE (08:14)
[2018-01-31] MEDS ORDERED: Bacitracin 500 Units/gm Oint Foilpak UD ONE ×2 (08:31→08:32)
[2018-01-31] MEDS ORDERED: Lactated Ringer's 1,000 ML IV SCH (08:45)
--- NOTE | 2018-01-31 08:48 | PCM.SURG1 ---
Surgeon's Initial Post Op Note - Surgeon's Notes Surgeon: Dr. Zeynep Roman. DPM Bingo Checker: Dr. Blayne Matson. DPM/PGY1 Type of Anesthesia: IV Sedation, Local Anesthesia Administered By: Dr. Regan Pre-Operative Diagnosis: R 1st toe non healing ulcer with underlying osteomyelitis. Operative Findings: See Dictation. Injectables: 12 cc of 2% plain lidocaine. Materials: 3-0 Nylon suture. Post-Operative Diagnosis: Same Operation Performed: Right 1st toe debridement of all , necrotic soft tissue and bone. Specimen/Specimens Removed: - Bone C&S. Estimated Blood Loss: EBL {In ML}: 1 Blood Products Given: N/A Drains Used: No Drains Post-Op Condition: Good Date of Surgery/Procedure: 01/31/18 Time of Surgery/Procedure: 08:49
[2018-01-31 09:52] VITALS: PULSE 85; RESP 20; TEMP 98.1; O2SAT 99
[2018-01-31 11:58] VITALS: BP 138/90
--- NOTE | 2018-01-31 20:37 | OP ---
PROCEDURE DATE: 01/31/2018 PREOPERATIVE DIAGNOSIS: Right first toe nonbleeding ulcer with underlying osteomyelitis. POSTOPERATIVE DIAGNOSIS: Right first toe non healing ulcer with underlying osteomyelitis. NAME OF PROCEDURE: Right first toe debridement of all necrotic soft tissue and bone. SURGEON: Zeynep Roman DPM WIRE BASKET MAKER: Blayne Matson DPM/PGY 1. ANESTHESIA: Local anesthesia with IV sedation. DISPATCHER TOW TRUCK: Dr. Regan. INDICATIONS: The patient is a 57-year-old male with the above diagnosis. The patient has exhausted all the conservative treatment at this time and now requires surgical intervention. The patient signed the consent after careful explanation of risks, benefits, complications, and alternatives for surgical procedure. No guarantees were given nor implied. NPO. status was confirmed prior to taking the patient to the OR. PREPARATION: The patient was brought to the operating room and placed on the operating table in a supine position. Time-out was performed for identification of the correct patient and procedure. After induction of sedation and administration of 12 mL of 2% plain lidocaine in a right Stafford block fashion, the right lower extremity was then prepped and draped in a normal sterile manner and the local anesthesia status was confirmed. The procedure then began. No tourniquet was used during the procedure. DESCRIPTION OF PROCEDURE: Attention was then directed to the right first toe, using a curette, the ulcer was debrided down to the level of the bone. Using the curette also, the right first toe distal phalanx was debrided. A bone culture was obtained from the debrided bone, passed from the operative sterile field and sent to lab. Then, using pulse lavage, the wound was irrigated using copious amounts of sterile saline and gentamicin. Then, using 3-0 nylon suture, one retention suture was applied to approximate the wound edges in a simple suture fashion. The wound then was dressed using bacitracin, Xeroform, 4 x 4 gauze, and Kerlix. POSTOPERATIVE CONDITION: The patient tolerated the anesthesia and the procedure well and was then escorted to the recovery room with vital signs stable and neurovascular status intact to the right lower extremity. The patient will follow up with Dr. Zeynep Roman at the [facility]ound [facility] at [facility]. Blayne Matson DPM/GAURI 1. Zeynep Roman DPM [facility] # [id number] [facility]ITAL[facility]ing
== END 2018-01-31 11:10 | disposition home or self-care (01) ==
LOC: SDS 05:56
PROVIDERS: ATTEND Podiatrist
DX: E11.621 Type 2 diabetes mellitus with foot ulcer (principal); L97.519 Non-pressure chronic ulcer of other part of right foot with unspecified severity; M86.9 Osteomyelitis, unspecified; E11.69 Type 2 diabetes mellitus with other specified complication; I10 Essential (primary) hypertension; E11.51 Type 2 diabetes mellitus with diabetic peripheral angiopathy without gangrene
CPT/HCPCS: 11044; 87075; J0690; J1580; J7120

== ENCOUNTER 2018-03-07 10:42 | Day surgery (SDC) | payer BC ==
[2018-03-02 08:19] VITALS: BMI 26.6
[2018-03-07] MEDS ORDERED: Lidocaine 2% Inj (20ml) ONE (12:45)
[2018-03-07] MEDS ORDERED: Bupivacaine 0.5% 50 ML IJ ONE ×2 (12:45→13:30)
[2018-03-07] MEDS ORDERED: CeFAZolin 1 gm in NS 100ml IVPB ONE (13:25)
[2018-03-07] MEDS ORDERED: Midazolam 2 MG/2 ML VIAL ONE (13:30)
[2018-03-07] MEDS ORDERED: Lidocaine 2% Inj (20ml) IJ ONE (13:30)
[2018-03-07] MEDS ORDERED: Propofol 10 mg/ml Inj (20 ML) ONE (13:30)
[2018-03-07] MEDS ORDERED: Gentamicin 80 mg/2mL Inj. ONE (13:33)
[2018-03-07] MEDS ORDERED: HYDROmorphone 0.5 mg/0.5 ml ISec IVP PRN (14:44)
[2018-03-07] MEDS ORDERED: Oxycodone/Acetaminophen 5/325 mg Tab PO PRN ×2 (14:44)
--- NOTE | 2018-03-07 14:44 | PCM.SURG1 ---
Surgeon's Initial Post Op Note - Surgeon's Notes Surgeon: Dr. Julianna Roman Furnace Combination Analyst: Olena Hahn PGY1 Type of Anesthesia: IV Sedation, Local Anesthesia Administered By: Dr. Reyes Pre-Operative Diagnosis: Right hallux osteomyelitis Operative Findings: see dictations. materials- 2-0 vicryl, 3-0 nylon. injectibles: 10 cc of 1:1 mixture of .5% marcaine plain and 2% lidocaine plain Post-Operative Diagnosis: same Operation Performed: Right hallux amputation. Specimen/Specimens Removed: right hallux distal phalanx and head of proximal phalanx Estimated Blood Loss: EBL {In ML}: 2 Blood Products Given: N/A Drains Used: No Drains Post-Op Condition: Good Date of Surgery/Procedure: 03/07/18 Time of Surgery/Procedure: 14:43
[2018-03-07] MEDS ORDERED: Lactated Ringer's 1,000 ML IV SCH (14:45)
[2018-03-07 15:02] VITALS: TEMP 97.3
[2018-03-07 16:10] VITALS: O2SAT 98
[2018-03-07 17:20] VITALS: BP 150/69; PULSE 93; RESP 18
--- NOTE | 2018-03-07 17:49 | RAD ---
Date of service: 03/07/2018 PROCEDURE: Right Foot Radiographs. HISTORY: post amputation COMPARISON: Preoperative study 11/09/2017 FINDINGS: BONES: Expected postoperative findings following resection of the 1st digit. JOINTS: Normal. SOFT TISSUES: Soft tissue swelling at the operative site. OTHER FINDINGS: Satisfactory postoperative status IMPRESSION: Normal right foot radiographs.
--- NOTE | 2018-03-09 08:18 | OP ---
PROCEDURE DATE: 03/07/2018 SURGEON: Zeynep Roman DPM ROSS CARRIER DRIVER: Olena Hahn, PGY-1 ANESTHESIOLOGIST: Real Ledezma MD ANESTHESIA: IV sedation with local anesthesia. PREOPERATIVE DIAGNOSIS: Right hallux osteomyelitis. POSTOPERATIVE DIAGNOSIS: Right hallux osteomyelitis. NAME OF PROCEDURE: Right partial hallux amputation. INDICATION: The patient is a 57-year-old male with the above diagnosis. The patient exhausted all conservative treatments at this time and now requires surgical intervention. The patient signed the consent after careful explanation of risks, benefits, complications, and alternatives for surgical procedure. No guarantees were given nor implied. N.p.o. status was confirmed prior to taking the patient to the OR. PREPARATION: The patient was brought into the operating room and placed on operating room table in a supine position. Time-out was performed for identification of correct patient and procedure. After induction of IV sedation, the patient received a total of 10 mL of 2% lidocaine plain and 0.5% Marcaine plain in a digital block type fashion to the right first metatarsal. The right foot was then prepped and draped in normal sterile manner and the procedure began. No tourniquet was utilized during the procedure. DESCRIPTION OF PROCEDURE: Attention was drawn to the distal medial aspect of the hallux where dry 0.5 x 0.5 cm ulceration was noted that probed to bones. Attention was then drawn to the distal tip of the right hallux. A fish-mouth incision was made at the level of interphalangeal joint to the right hallux using a #15 blade. The incision was then extended down through the subcutaneous layers down to the level of the bone extending into the interphalangeal joint. Using a bone clamp to the stabilized the hallux, distal phalanx was then disarticulated from the foot at the level of the IPJ. Using a sagittal saw, the head of the proximal phalanx was then resected and packed off from the operative field. Proximal phalanx and distal phalanx of the hallux were both sent out to pathology. Using a fresh #15-blade, all necrotic and nonviable tissue was then excisionally debrided from the surgical site with additional soft tissue removed with adequate skin closure without tension. The wound was then copiously washed with pulse lavage with gentamicin. At this point, wound cultures of the deep tissue were taken. Surgical site was then sutured, closed using 2-0 Vicryl to reapproximate the subcutaneous skin. The skin was then reapproximated using 4-0 nylon with simple suture technique. The surgical site was then dressed with acticoat, 4x4 gauze, Kerlix, and Coban with mild compression. POSTOPERATIVE CONDITION: The patient tolerated the anesthesia and procedure well and was escorted to the recovery room with vital signs stable and neurovascular status intact to right leg. The patient is to weightbear as tolerated to the right lower extremity. The patient will follow up with Dr. Roman in her office within a week. OLENA HAHN Zeynep Roman DPM [facility]
== END 2018-03-07 17:30 | disposition home or self-care (01) ==
LOC: SDS 10:42
PROVIDERS: ATTEND Podiatrist
DX: E11.69 Type 2 diabetes mellitus with other specified complication (principal); M86.8X7 Other osteomyelitis, ankle and foot; E11.621 Type 2 diabetes mellitus with foot ulcer; E11.51 Type 2 diabetes mellitus with diabetic peripheral angiopathy without gangrene; I10 Essential (primary) hypertension
CPT/HCPCS: 28825; 73630; 87070; 88305; 88311; J0690; J1170; J1580; J2250; J2405; J2704; J3010; J7120 ×2